=== PATIENT | male | born 2000 | race Caucasian/White ===

== ENCOUNTER 2024-09-30 23:37 | Emergency (ER) | payer SELFPAY ==
[2024-09-30 23:42] VITALS: BP 145/82; PULSE 82; RESP 14; TEMP 36.7; O2SAT 100
[2024-10-01 01:58] VITALS: BP 133/78; PULSE 59; O2SAT 100
[2024-10-01 01:58] LABS: Basophils # 0.1 10^3/uL (0.0-0.1); Basophils % 0.7 %; Eosinophils % 0.2 %; Hematocrit 43.4 % (37-53); Lymphocytes # 1.8 10^3/uL (0.8-4.8); Lymphocytes % 22.5 %; Mean Corpuscular HGB Conc 33.6 g/dL (30-55); Mean Corpuscular Hemoglobin 30.6 pg (27-33); Mean Platelet Volume 9.9 fL (7.4-10.4); Monocytes # 0.7 10^3/uL (0.2-0.9); Neutrophils # 5.44 10^3/uL (1.8-7.7); Neutrophils % 67.4 %; Nucleated Red Blood Cells % 0 %; Platelet Count 224 10^3/cmm (157-399); Red Blood Count 4.77 10^6/uL (3.85-5.65); Red Cell Distribution Width 11.9 % (12.1-15.1); White Blood Count 8.09 10^3/uL (3.29-11.43)
[2024-10-01 02:00] VITALS: BP 133/79; PULSE 54; O2SAT 100
[2024-10-01 02:15] LABS: Alanine Aminotransferase 22 U/L (0-41); Albumin Level 5.1 g/dL (3.5-5.2); Alkaline Phosphatase 68 U/L (40-130); Anion Gap 14.1 (5-19); Aspartate Amino Transferase 14 U/L (0-40); Blood Urea Nitrogen 19 mg/dL (6-20); Calcium 8.8 mg/dL (8.5-10.5); Carbon Dioxide 28 mmol/L (22-29); Chloride 101 mmol/L (98-107); Creatinine Clr Calc Pharmacy 108.8869; Globulin 2.1 g/dL (1.3-4.6); Glomerular Filtration Rate 91.8 mL/min (90-130); Glucose 98 mg/dL (65-115); Osmolality Calculated 290 mOsm/kg (285-295); Potassium 4.1 mmol/L (3.5-5.1); Sodium 139 mmol/L (136-145); Total Bilirubin 1.1 mg/dL (0.15-1.2); Total Protein 7.2 g/dL (6.6-8.7)
--- NOTE | 2024-10-01 02:15 | ED_ITS ---
HPI - Abdominal Pain 2 General: Chief Complaint: Abdominal Pain Stated Complaint: abd pain tight right under ribs around back Time Seen by Provider: 10/01/24 02:10 History of Present Illness: Patient presents to the ER with complaints of quadrant pain and epigastric pain that radiates to his back between his shoulder blades. Patient says worse with eating especially heavy meals like burritos. Patient also says is worse with moving. Patient has tried taking Pepcid once a day for the last several days with no relief. Patient is never had a pain like this before. Patient does get nauseous when this pain comes back. Patient has had diarrhea off and on multiple x also. Related Data Previous Rx's Medication Instructions Recorded erythromycin 5 mg/gram (0.5 %) eye 1 applic ophthalmic (eye) QID 7 03/17/24 ointment (3.5 gram tube) days #3.5 grams Allergies Allergy/AdvReac Type Severity Reaction Status Date / Time No Known Allergies Allergy Verified 09/30/24 23:47 Review of Systems 2 General: Reports: 10 or more systems reviewed and unremarkable except in HPI and below Physical Exam 2 Const: COMMON NORMALS: no acute distress, average body habitus, patient oriented x3, no limitations, healthy appearing, alert and well nourished HENMT: COMMON NORMALS: normocephalic, atraumatic, hearing grossly normal bilaterally, external ears normal and Normal external nose present HEAD & SCALP: normocephalic and atraumatic NOSE: Normal external nose present E XTERNAL EAR: Yes external ears normal Neck/C-Spine: COMMON NORMALS: full ROM, no lymphadenopathy, no meningeal signs, no JVD and Thyroid normal THYROID: Thyroid normal Chest: COMMONS NORMALS: normal inspection of the chest and normal palpation of entire chest wall Resp: COMMON NORMALS: normal respiratory effort, No retractions, No use of accessory muscles and clear to auscultation bilaterally AUSCULTATION: clear to auscultation bilaterally Cardio: COMMON NORMALS: no JVD, regular rate, regular rhythm, S1 normal heart sound present, S2 normal heart sound present, No gallops present (Cardio), No clicks present (Cardio), No murmurs present (Cardio) and No rub (Cardio) R ATE: regular rate RHYTHM: regular rhythm HEART SOUNDS: S1 normal heart sound present and S2 normal heart sound present GI: COMMON NORMALS: Normal to inspection, nondistended, normoactive bowel sounds present, Soft to palpation, non-tender, No hepatosplenomegaly present and no masses PALPATION: Yes Soft to palpation and Yes No hepatosplenomegaly present Neuro: COMMON NORMALS: patient oriented x3 SENSORIUM/ORIENTATION: Yes alert MENINGEAL SIGNS: Yes no meningeal signs Course 2 Vital Signs: Vital signs: Vital Signs Temperature 98.1 F 09/30/24 23:42 Pulse Rate 54 L 10/01/24 02:49 Respiratory Rate 14 09/30/24 23:42 Blood Pressure 105/66 10/01/24 02:49 Pulse Oximetry 98 10/01/24 02:49 Oxygen Delivery Me thod Room Air 10/01/24 02:00 MDM - Abdominal Pain Medical Decision Making Patient CBC CMP lipase urinalysis done all essentially negative. Discussed with the patient. Patient be discharged home. Medical Records I reviewed the patient's medical records. Lab Data I reviewed the patient's lab results. 10/01/24 01:53 10/01/24 01:53 Labs/Radiology: Laboratory Results WBC 8.09 10^3/uL (3.29-11.43) 10/01/24 01:53 RBC 4.77 10^6/uL (3.85-5.65) 10/01/24 01:53 Hgb 14.60 g/dL (11.27-16.99) 10/01/24 01:53 Hct 43.4 % (37-53) 10/01/24 01:53 MCV 91.0 fl (82-101) 10/01/24 01:53 MCH 30.6 pg (27-33) 10/01/24 01:53 MCHC 33.6 g/dL (30-55) 10/01/24 01:53 RDW 11.9 % (12.1-15.1) L 10/01/24 01:53 Plt Count 224 10^3/cmm (157-399) 10/01/24 01:53 MPV 9.9 fL (7.4-10.4) 10/01/24 01:53 Neut % (Auto) 67.4 % 10/01/24 01:53 Lymph % (Auto) 22.5 % 10/01/24 01:53 [place] % (Auto) 9.0 % 10/01/24 01:53 Eos % (Auto) 0.2 % 10/01/24 01:53 Baso % (Auto) 0.7 % 10/01/24 01:53 Neut # (Auto) 5.44 10^3/uL (1.8-7.7) 10/01/24 01:53 Lymph # (Auto) 1.8 10^3/uL (0.8-4.8) 10/01/24 01:53 [place] # (Auto) 0.7 10^3/uL (0.2-0.9) 10/01/24 01:53 Eos # (Auto) 0.0 10^3/uL (0.0-0.8) 10/01/24 01:53 Baso # (Auto) 0.1 10^3/uL (0.0-0.1) 10/01/24 01:53 Nucleated RBC % (auto) 0 % 10/01/24 01:53 Nucleated RBCs # 0.0 /100WBC 10/01/24 01:53 Sodium 139 mmol/L (136-145) 10/01/24 01:53 Potassium 4.1 mmol/L (3.5-5.1) 10/01/24 01:53 Chloride 101 mmol/L (98-107) 10/01/24 01:53 Carbon Dioxide 28 mmol/L (22-29) 10/01/24 01:53 Anion Gap 14.1 (5-19) 10/01/24 01:53 BUN 19 mg/dL (6-20) 10/01/24 01:53 Creatinine 1.0 mg/dL (0.7-1.2) 10/01/24 01:53 GFR Calculation 91.8 mL/min (90-130) 10/01/24 01:53 Glucose 98 mg/dL (65-115) 10/01/24 01:53 Calculated Osmolality 290 mOsm/kg (285-295) 10/01/24 01:53 Calcium 8.8 mg/dL (8.5-10.5) 10/01/24 01:53 Magnesium 2.2 mg/dL (1.7-2.3) 10/01/24 01:53 Total Bilirubin 1.1 mg/dL (0.15-1.2) 10/01/24 01:53 AST 14 U/L (0-40) 10/01/24 01:53 ALT 22 U/L (0-41) 10/01/24 01:53 Alkaline Phosphatase 68 U/L (40-130) 10/01/24 01:53 Total Protein 7.2 g/dL (6.6-8.7) 10/01/24 01:53 Albumin 5.1 g/dL (3.5-5.2) 10/01/24 01:53 Globulin 2.1 g/dL (1.3-4.6) 10/01/24 01:53 Lipase 28 U/L (13-60) 10/01/24 01:53 Urine Color Yellow (Yellow) 10/01/24 02:27 Urine Appearance Clear (CLEAR) 10/01/24 02:27 Urine pH 5.5 (5-7) 10/01/24 02:27 Ur Specific [place] 1.027 (1.005-1.030) 10/01/24 02:27 Urine Protein Negative (Negative) 10/01/24 02:27 Urine Glucose (UA) Negative (Normal) 10/01/24 02:27 Urine Ketones Negative (Negative) 10/01/24 02:27 Urine Blood Negative (Negative) 10/01/24 02:27 Urine Nitrate Negative (Negative) 10/01/24 02:27 Urine Bilirubin Negative (Negative) 10/01/24 02:27 Urine Urobilinogen 1.0 mg/dL (Negative) 10/01/24 02:27 Ur Leukocyte Esterase Negative (Negative) 10/01/24 02:27 Urine RBC 0-2 /hpf (0-2) 10/01/24 02:27 Urine WBC 11-20 /hpf (0-5) H 10/01/24 02:27 Ur Squamous Epith Cells 0-5 /hpf (0-5) 10/01/24 02:27 Amorphous Sediment Not Reportable 10/01/24 02:27 Urine Bacteria None seen /hpf (NONE) 10/01/24 02:27 Hyaline Casts 1.21 /lpf 10/01/24 02:27 All radiology interpretation(s) finalized by discharge Discharge Plan Discharge Patient Disposition: Home Clinical Impression: Abdominal pain Qualifiers: Abdominal location: right upper quadrant Qualified Code(s): R10.11 - Right upper quadrant pain Condition: Stable Prescriptions: No Action erythromycin 5 mg/gram (0.5 %) ointment 1 applic ophthalmic (eye) QID 7 Days Qty: 3.5 0RF Discharge Orders: Discharge ED (Routine); Ordered 10/01/24 Ordered By: Maksim Rodriguez Referrals: Justyna Ruiz MD [Primary Care Provider] - 1 week Patient Instructions: Abdominal Pain (ED) Activity Restrictions/Additional Instructions: Thank you for choosing [facility] for your healthcare needs today. Please realize that you were seen in the emergency department and that we are providing you with an emergency medical screening exam and this may not be a complete and all exclusive of all testing and/or medical workup we may need to determine your element or severity of your illness. It is very important that you follow-up as instructed with your primary care provider or specialist for the additional evaluation and to discuss your medical treatment plan. You may return to the emergency department should you have concerns or if your condition changes or worsens in any way. Coding Level of Care Code ED Miner Placer for Chandler Hayden
[2024-10-01 02:35] LABS: Bilirubin Urine Negative (Negative); Blood Urine Negative (Negative); Glucose Urine UA Negative (Normal); Ketones Urine Negative (Negative); Leukocyte Esterase Urine Negative (Negative); Nitrate Urine Negative (Negative); Protein Urine Negative (Negative); Specific Gravity, Urine 1.027 (1.005-1.030); Urine Appearance Clear (CLEAR); Urine Color Yellow (Yellow); pH Urine 5.5 (5-7)
[2024-10-01 02:39] LABS: Lipase 28 U/L (13-60); Magnesium 2.2 mg/dL (1.7-2.3)
[2024-10-01 02:40] LABS: Add Urine Microscopic? YES; Bacteria Urine None Seen /hpf; Hyaline Casts Urine 1.21 /lpf; RBC Urine 0-2 /hpf (0-2); Squamous Epithelial Cell Urine 0-5 /hpf (0-5)
[2024-10-01 02:49] VITALS: BP 105/66; PULSE 54; O2SAT 98
[2024-10-01 03:02] VITALS: BP 110/66; PULSE 55; O2SAT 98
== END 2024-10-01 03:00 | disposition home or self-care (01) ==
PROVIDERS: Emergency Provider Emergency Medicine; PCP Pediatrics Adolescent Medicine
DX: R10.11 Right upper quadrant pain (principal)
CPT/HCPCS: 36415; 80053; 81001; 83690; 83735; 85025; 99283

== ENCOUNTER 2024-10-02 11:16 | Emergency (ER) | payer OTHER, SELFPAY ==
--- NOTE | 2024-10-02 11:31 | ECG_ITS ---
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
[2024-10-02 11:34] VITALS: BP 145/80; PULSE 51; RESP 18; TEMP 36.6; O2SAT 99
--- NOTE | 2024-10-02 11:38 | XR_ITS ---
WS: [id number] Exam: XR chest 1V portable [id number] Date/Time of Exam: 10/02/2024 11:41 AM Reason For Exam: dyspnea/cough No priors. Lungs are clear and fully inflated. Normal cardiomediastinal silhouette and regional bony elements. N o pleural effusion. XR/XR chest 1V portable [id number] IMPRESSION: 1. Normal chest.
[2024-10-02 12:33] LABS: Basophils # 0.1 10^3/uL (0.0-0.1); Basophils % 1.1 %; Eosinophils % 0.6 %; Hematocrit 44.6 % (37-53); Lymphocytes # 1.5 10^3/uL (0.8-4.8); Mean Corpuscular HGB Conc 33.2 g/dL (30-55); Mean Corpuscular Hemoglobin 30.3 pg (27-33); Mean Corpuscular Volume 91.2 fl (82-101); Mean Platelet Volume 9.8 fL (7.4-10.4); Monocytes # 0.5 10^3/uL (0.2-0.9); Monocytes % 10.3 %; Neutrophils # 2.69 10^3/uL (1.8-7.7); Neutrophils % 56.8 %; Nucleated Red Blood Cells % 0 %; Platelet Count 212 10^3/cmm (157-399); Red Blood Count 4.89 10^6/uL (3.85-5.65); Red Cell Distribution Width 11.9 % (12.1-15.1); White Blood Count 4.74 10^3/uL (3.29-11.43)
[2024-10-02 12:48] LABS: Alanine Aminotransferase 26 U/L (0-41); Alkaline Phosphatase 69 U/L (40-130); Anion Gap 14.3 (5-19); Aspartate Amino Transferase 15 U/L (0-40); Blood Urea Nitrogen 15 mg/dL (6-20); Calcium 9.7 mg/dL (8.5-10.5); Carbon Dioxide 29 mmol/L (22-29); Chloride 101 mmol/L (98-107); Creatinine Clr Calc Pharmacy 134.2821; Globulin 2.3 g/dL (1.3-4.6); Glomerular Filtration Rate 118.8 mL/min (90-130); Glucose 95 mg/dL (65-115); Lipase 25 U/L (13-60); Osmolality Calculated 291 mOsm/kg (285-295); Potassium 4.3 mmol/L (3.5-5.1); Sodium 140 mmol/L (136-145); Total Bilirubin 2.7 mg/dL (0.15-1.2); Total Protein 7.3 g/dL (6.6-8.7)
[2024-10-02 13:10] LABS: Bilirubin Urine Negative (Negative); Blood Urine Negative (Negative); Glucose Urine UA Negative (Normal); Ketones Urine Negative (Negative); Leukocyte Esterase Urine Negative (Negative); Nitrate Urine Negative (Negative); Protein Urine Negative (Negative); Specific Gravity, Urine 1.017 (1.005-1.030); Urine Appearance Cloudy (CLEAR); Urine Color Yellow (Yellow); Urobilinogen Urine 0.2 mg/dL (Negative); pH Urine 7.5 (5-7)
[2024-10-02 13:13] LABS: Add Urine Microscopic? YES; Bacteria Urine None Seen /hpf; RBC Urine 0-2 /hpf (0-2); Squamous Epithelial Cell Urine 0-5 /hpf (0-5); WBC Urine 0-5 /hpf (0-5)
--- NOTE | 2024-10-02 15:04 | ED_ITS ---
Documented by User: Osiel Dubose DO 10/04/24 05:47 HPI - Abdominal Pain 2 General: Chief Complaint: Abdominal Pain Stated Complaint: pressure under right rib cage ([place]) Time Seen by Provider: 10/02/24 15:01 History of Present Illness: 24-year-old male presents emergency room complaints of abdominal pain intermittently for the last 4 days worse when he eats things he has really noticed particular foods that seem to worse. Has not really noticed anything else that makes it better or worse. He has not had any fever sweats chills no nausea or vomiting. No dysuria urgency or frequency. No vomiting. Is complaining of pain in the right upper quadrant at times radiating into his back and right shoulder Associated Symptoms: Reports nausea; Denies chills, dysuria and fever(s) Related Data Previous Rx's Medication Instructions Recorded pantoprazole 40 mg tablet,delayed 40 mg PO DAILY #30 tabs 10/02/24 release (Protonix) Allergies Allergy/AdvReac Type Severity Reaction Status Date / Time No Known Allergies Allergy Verified 09/30/24 23:47 Review of Systems 2 Const: Denies: fever(s) or chills Card: Denies: chest pain Resp: Denies: dyspnea GI: Reports: abdominal pain and nausea : Denies: dysuria, urinary frequency or urinary urgency Musc: Denies: neck pain or back pain Skin/Breast: Denies: rash Physical Exam 2 Const: GENERAL APPEARANCE: cooperative ORIENTATION/CONSCIOUSNESS: Yes awake, Yes oriented to person, Yes oriented to place and Yes oriented to time HENMT: COMMON NORMALS: normocephalic, atraumatic and hearing grossly normal bilaterally HEAD & SCALP: normocephalic and atraumatic Resp: COMMON NORMALS: normal respiratory effort, No retractions, No use of accessory muscles and clear to auscultation bilaterally AUSCULTATION: clear to auscultation bilaterally Cardio: COMMON NORMALS: regular rate, regular rhythm and No murmurs present (Cardio) RATE: regular rate RHYTHM: regular rhythm GI: COMMON NORMALS: Soft to palpation and No hepatosplenomegaly present A USCULTATION: Yes normoactive bowel sounds PALPATION: Yes Soft to palpation, No Tenderness to palpation present (GI), No Guarding due to palpation present (GI) and Yes No hepatosplenomegaly present Extremity: COMMON NORMALS: normal to inspection, capillary refill normal, no clubbing, cyanosis or edema, no calf tenderness and no pedal edema Neuro: SENSORIUM/ORIENTATION: Yes oriented to person, Yes oriented to place and Yes oriented to time Skin: COMMON NORMALS: no rashes or lesions noted GENERAL SKIN EXAM: no rashes or lesions noted Course 2 Vital Signs: Vital signs: Vital Signs Temperature 97.9 F 10/02/24 11:34 Pulse Rate 56 L 10/02/24 16:10 Respiratory Rate 18 10/02/24 11:34 Blood Pressure 105/70 10/02/24 16:10 Pulse Oximetry 98 10/02/24 16:10 Oxygen Delivery Me thod Room Air 10/02/24 15:07 MDM - Abdominal Pain Medical Decision Making Labs and imaging reviewed no sign of acute fracture. Symptoms exacerbated by eating. He does have isolated elevated bilirubin. Ultrasound of the gallbladder does not show any significant abnormality patient will need discharged home on pantoprazole will set up follow-up HIDA scan and follow-up with general surgery Lab Data 10/02/24 12:20 10/02/24 12:20 Labs/Radiology: Radiology Impressions Chest X-Ray 10/02/24 11:38 IMPRESSION: 1. Normal chest. Gallbladder Ultrasound 10/02/24 15:12 IMPRESSION: Normal right upper quadrant ultrasound. Laboratory Results WBC 4.74 10^3/uL (3.29-11.43) 10/02/24 12:20 RBC 4.89 10^6/uL (3.85-5.65) 10/02/24 12:20 Hgb 14.80 g/dL (11.27-16.99) 10/02/24 12:20 Hct 44.6 % (37-53) 10/02/24 12:20 MCV 91.2 fl (82-101) 10/02/24 12:20 MCH 30.3 pg (27-33) 10/02/24 12:20 MCHC 33.2 g/dL (30-55) 10/02/24 12:20 RDW 11.9 % (12.1-15.1) L 10/02/24 12:20 Plt Count 212 10^3/cmm (157-399) 10/02/24 12:20 MPV 9.8 fL (7.4-10.4) 10/02/24 12:20 Neut % (Auto) 56.8 % 10/02/24 12:20 Lymph % (Auto) 31.0 % 10/02/24 12:20 [place] % (Auto) 10.3 % 10/02/24 12:20 Eos % (Auto) 0.6 % 10/02/24 12:20 Baso % (Auto) 1.1 % 10/02/24 12:20 Neut # (Auto) 2.69 10^3/uL (1.8-7.7) 10/02/24 12:20 Lymph # (Auto) 1.5 10^3/uL (0.8-4.8) 10/02/24 12:20 [place] # (Auto) 0.5 10^3/uL (0.2-0.9) 10/02/24 12:20 Eos # (Auto) 0.0 10^3/uL (0.0-0.8) 10/02/24 12:20 Baso # (Auto) 0.1 10^3/uL (0.0-0.1) 10/02/24 12:20 Nucleated RBC % (auto) 0 % 10/02/24 12:20 Nucleated RBCs # 0.0 /100WBC 10/02/24 12:20 Sodium 140 mmol/L (136-145) 10/02/24 12:20 Potassium 4.3 mmol/L (3.5-5.1) 10/02/24 12:20 Chloride 101 mmol/L (98-107) 10/02/24 12:20 Carbon Dioxide 29 mmol/L (22-29) 10/02/24 12:20 Anion Gap 14.3 (5-19) 10/02/24 12:20 BUN 15 mg/dL (6-20) 10/02/24 12:20 Creatinine 0.8 mg/dL (0.7-1.2) 10/02/24 12:20 GFR Calculation 118.8 mL/min (90-130) 10/02/24 12:20 Glucose 95 mg/dL (65-115) 10/02/24 12:20 Calculated Osmolality 291 mOsm/kg (285-295) 10/02/24 12:20 Calcium 9.7 mg/dL (8.5-10.5) 10/02/24 12:20 Total Bilirubin 2.7 mg/dL (0.15-1.2) H 10/02/24 12:20 AST 15 U/L (0-40) 10/02/24 12:20 ALT 26 U/L (0-41) 10/02/24 12:20 Alkaline Phosphatase 69 U/L (40-130) 10/02/24 12:20 Total Protein 7.3 g/dL (6.6-8.7) 10/02/24 12:20 Albumin 5.0 g/dL (3.5-5.2) 10/02/24 12:20 Globulin 2.3 g/dL (1.3-4.6) 10/02/24 12:20 Lipase 25 U/L (13-60) 10/02/24 12:20 Urine Color Yellow (Yellow) 10/02/24 12:55 Urine Appearance Cloudy (CLEAR) A 10/02/24 12:55 Urine pH 7.5 (5-7) 10/02/24 12:55 Ur Specific [place] 1.017 (1.005-1.030) 10/02/24 12:55 Urine Protein Negative (Negative) 10/02/24 12:55 Urine Glucose (UA) Negative (Normal) 10/02/24 12:55 Urine Ketones Negative (Negative) 10/02/24 12:55 Urine Blood Negative (Negative) 10/02/24 12:55 Urine Nitrate Negative (Negative) 10/02/24 12:55 Urine Bilirubin Negative (Negative) 10/02/24 12:55 Urine Urobilinogen 0.2 mg/dL (Negative) 10/02/24 12:55 Ur Leukocyte Esterase Negative (Negative) 10/02/24 12:55 Urine RBC 0-2 /hpf (0-2) 10/02/24 12:55 Urine WBC 0-5 /hpf (0-5) 10/02/24 12:55 Ur Squamous Epith Cells 0-5 /hpf (0-5) 10/02/24 12:55 Amorphous Sediment Not Reportable 10/02/24 12:55 Urine Bacteria None seen /hpf (NONE) 10/02/24 12:55 Hyaline Casts 0.40 /lpf 10/02/24 12:55 Discharge Plan Discharge Patient Disposition: Home Clinical Impression: Abdominal pain Qualifiers: Abdominal location: right upper quadrant Qualified Code(s): R10.11 - Right upper quadrant pain Condition: Stable Prescriptions: New pantoprazole [Protonix] 40 mg tablet,delayed release (DR/EC) 40 mg PO DAILY Qty: 30 0RF Discharge Orders: Discharge ED (Routine); Ordered 10/02/24 Ordered By: Osiel Dubose Referrals: Justyna Ruiz MD [Primary Care Provider] - Discharge Diet: As Directed Discharge Activity: Increase activity as tolerated Patient Instructions: Biliary Colic (ED), Abdominal Pain (ED), Opioid Safety, Pain Management Activity Restrictions/Additional Instructions: [facility] It is very important that you follow up as instructed or that you return to the Emergency Department should you have concerns or if your condition changes or worsens in any way. You are seen today with complaint right upper quadrant abdominal pain. Your gallbladder ultrasound was normal. Case management migratory to have a HIDA scan done. Your bilirubin is also elevated should follow-up with your primary care doctor or with the [place] clinic regarding this. Coding Level of Care Code ED Boiler Fireman for Chg Fwd Documented by User: Maksim Rodriguez DO 10/03/24 00:04 HPI - Abdominal Pain 2 General: Chief Complaint: Abdominal Pain Stated Complaint: pressure under right rib cage ([place]) Time Seen by Provider: 10/02/24 15:01 Related Data Previous Rx's Medication Instructions Recorded pantoprazole 40 mg tablet,delayed 40 mg PO DAILY #30 tabs 10/02/24 release (Protonix) Allergies Allergy/AdvReac Type Severity Reaction Status Date / Time No Known Allergies Allergy Verified 09/30/24 23:47 Course 2 Vital Signs: Vital signs: Vital Signs Temperature 97.9 F 10/02/24 11:34 Pulse Rate 56 L 10/02/24 16:10 Respiratory Rate 18 10/02/24 11:34 Blood Pressure 105/70 10/02/24 16:10 Pulse Oximetry 98 10/02/24 16:10 Oxygen Delivery Me thod Room Air 10/02/24 15:07 MDM - Abdominal Pain Medical Decision Making Care transferred over Dr. Dubose at shift change Medical Records I reviewed the patient's medical records. Lab Data I reviewed the patient's lab results. 10/02/24 12:20 10/02/24 12:20 Labs/Radiology: Radiology Impressions Chest X-Ray 10/02/24 11:38 IMPRESSION: 1. Normal chest. Gallbladder Ultrasound 10/02/24 15:12 IMPRESSION: Normal right upper quadrant ultrasound. Laboratory Results WBC 4.74 10^3/uL (3.29-11.43) 10/02/24 12:20 RBC 4.89 10^6/uL (3.85-5.65) 10/02/24 12:20 Hgb 14.80 g/dL (11.27-16.99) 10/02/24 12:20 Hct 44.6 % (37-53) 10/02/24 12:20 MCV 91.2 fl (82-101) 10/02/24 12:20 MCH 30.3 pg (27-33) 10/02/24 12:20 MCHC 33.2 g/dL (30-55) 10/02/24 12:20 RDW 11.9 % (12.1-15.1) L 10/02/24 12:20 Plt Count 212 10^3/cmm (157-399) 10/02/24 12:20 MPV 9.8 fL (7.4-10.4) 10/02/24 12:20 Neut % (Auto) 56.8 % 10/02/24 12:20 Lymph % (Auto) 31.0 % 10/02/24 12:20 [place] % (Auto) 10.3 % 10/02/24 12:20 Eos % (Auto) 0.6 % 10/02/24 12:20 Baso % (Auto) 1.1 % 10/02/24 12:20 Neut # (Auto) 2.69 10^3/uL (1.8-7.7) 10/02/24 12:20 Lymph # (Auto) 1.5 10^3/uL (0.8-4.8) 10/02/24 12:20 [place] # (Auto) 0.5 10^3/uL (0.2-0.9) 10/02/24 12:20 Eos # (Auto) 0.0 10^3/uL (0.0-0.8) 10/02/24 12:20 Baso # (Auto) 0.1 10^3/uL (0.0-0.1) 10/02/24 12:20 Nucleated RBC % (auto) 0 % 10/02/24 12:20 Nucleated RBCs # 0.0 /100WBC 10/02/24 12:20 Sodium 140 mmol/L (136-145) 10/02/24 12:20 Potassium 4.3 mmol/L (3.5-5.1) 10/02/24 12:20 Chloride 101 mmol/L (98-107) 10/02/24 12:20 Carbon Dioxide 29 mmol/L (22-29) 10/02/24 12:20 Anion Gap 14.3 (5-19) 10/02/24 12:20 BUN 15 mg/dL (6-20) 10/02/24 12:20 Creatinine 0.8 mg/dL (0.7-1.2) 10/02/24 12:20 GFR Calculation 118.8 mL/min (90-130) 10/02/24 12:20 Glucose 95 mg/dL (65-115) 10/02/24 12:20 Calculated Osmolality 291 mOsm/kg (285-295) 10/02/24 12:20 Calcium 9.7 mg/dL (8.5-10.5) 10/02/24 12:20 Total Bilirubin 2.7 mg/dL (0.15-1.2) H 10/02/24 12:20 AST 15 U/L (0-40) 10/02/24 12:20 ALT 26 U/L (0-41) 10/02/24 12:20 Alkaline Phosphatase 69 U/L (40-130) 10/02/24 12:20 Total Protein 7.3 g/dL (6.6-8.7) 10/02/24 12:20 Albumin 5.0 g/dL (3.5-5.2) 10/02/24 12:20 Globulin 2.3 g/dL (1.3-4.6) 10/02/24 12:20 Lipase 25 U/L (13-60) 10/02/24 12:20 Urine Color Yellow (Yellow) 10/02/24 12:55 Urine Appearance Cloudy (CLEAR) A 10/02/24 12:55 Urine pH 7.5 (5-7) 10/02/24 12:55 Ur Specific [place] 1.017 (1.005-1.030) 10/02/24 12:55 Urine Protein Negative (Negative) 10/02/24 12:55 Urine Glucose (UA) Negative (Normal) 10/02/24 12:55 Urine Ketones Negative (Negative) 10/02/24 12:55 Urine Blood Negative (Negative) 10/02/24 12:55 Urine Nitrate Negative (Negative) 10/02/24 12:55 Urine Bilirubin Negative (Negative) 10/02/24 12:55 Urine Urobilinogen 0.2 mg/dL (Negative) 10/02/24 12:55 Ur Leukocyte Esterase Negative (Negative) 10/02/24 12:55 Urine RBC 0-2 /hpf (0-2) 10/02/24 12:55 Urine WBC 0-5 /hpf (0-5) 10/02/24 12:55 Ur Squamous Epith Cells 0-5 /hpf (0-5) 10/02/24 12:55 Amorphous Sediment Not Reportable 10/02/24 12:55 Urine Bacteria None seen /hpf (NONE) 10/02/24 12:55 Hyaline Casts 0.40 /lpf 10/02/24 12:55 All radiology interpretation(s) finalized by discharge Discharge Plan Discharge Patient Disposition: Home Clinical Impression: Abdominal pain Qualifiers: Abdominal location: right upper quadrant Qualified Code(s): R10.11 - Right upper quadrant pain Condition: Stable Prescriptions: New pantoprazole [Protonix] 40 mg tablet,delayed release (DR/EC) 40 mg PO DAILY Qty: 30 0RF Discharge Orders: Discharge ED (Routine); Ordered 10/02/24 Ordered By: Osiel Dubose Referrals: Justyna Ruiz MD [Primary Care Provider] - Discharge Diet: As Directed Discharge Activity: Increase activity as tolerated Patient Instructions: Biliary Colic (ED), Abdominal Pain (ED), Opioid Safety, Pain Management Activity Restrictions/Additional Instructions: Thank you for choosing [facility] for your healthcare needs today. It is very important that you follow up as instructed or that you return to the Emergency Department should you have concerns or if your condition changes or worsens in any way. You are seen today with complaint right upper quadrant abdominal pain. Your gallbladder ultrasound was normal. Case management migratory to have a HIDA scan done. Your bilirubin is also elevated should follow-up with your primary care doctor or with the [place] clinic regarding this. Coding Level of Care Code ED Boiler Fireman for Chandler Hayden
[2024-10-02 15:07] VITALS: BP 121/70; PULSE 54; O2SAT 100
--- NOTE | 2024-10-02 15:12 | US_ITS ---
WS: [id number] RIGHT UPPER QUADRANT ULTRASOUND HISTORY: RUQ abd pain COMPARISON: None available. Liver: 16.2 cm in length. Normal size liver and echogenicity. No bile duct dilatation or mass. Portal Vein: Normal hepatopetal flow with monophasic waveform. Gallbladder: Normally distended gallbladder with no stones or wall thickening. CBD: 0.3 cm Pancreas: Normal size and echogenicity. Right kidney: 10.1 cm in length. Normal size and echogenicity. No hydronephrosis or mass. Aorta and IVC: Unremarkable abdominal aorta and IVC. No ascites. US/US gall bladder [id number] IMPRESSION: Normal right upper quadrant ultrasound.
[2024-10-02 15:37] VITALS: BP 122/75; PULSE 60; O2SAT 99
[2024-10-02 16:10] VITALS: BP 105/70; PULSE 56; O2SAT 98
--- NOTE | 2024-10-04 07:12 | DCPLANNER ---
faxed outpatient hida to scheduling/messaged gen surg for er f/u
== END 2024-10-02 16:11 | disposition home or self-care (01) ==
PROVIDERS: Emergency Provider Family Medicine; PCP Pediatrics Adolescent Medicine
DX: R10.11 Right upper quadrant pain (principal)
CPT/HCPCS: 36415; 71045; 76705; 80053; 81001; 83690; 85025; 93005; 99285

== ENCOUNTER 2024-10-24 08:26 | Outpatient (CLI) | payer OTHER, SELFPAY ==
--- NOTE | 2024-10-24 08:30 | US_ITS ---
WS: [id number] Complete ABDOMINAL ULTRASOUND HISTORY: RUQ PAIN/ATTN:GALLBLADDER COMPARISON: Gallbladder ultrasound 10/02/2024 Liver: 13.7 cm in length. Normal size liver and echogenicity. No bile duct dilatation or mass. Portal Vein: Normal hepatopetal flow with monophasic waveform. Gallbladder: Normally distended gallbladder with no stones or wall thickening. CBD: 0.2 cm Pancreas: Normal size and echogenicity. Right kidney: 10.0 cm x 6.0 x 5.0 cm. Cortex:1.0 cm. Normal size and echogenicity. No hydronephrosis or mass. Left kidney: 10.5 cm x 4.7 cm x 4.2 cm. Cortex: 1.1 cm. Normal size and echogenicity. No hydronephrosis or mass. Spleen: 10.7 cm. Normal size and echogenicity. Aorta and IVC: Unremarkable abdominal aorta and IVC. US/US abdomen complete* [id number] Impression: Normal complete abdomen ultrasound. Normal gallbladder.
== END 2024-10-24 08:27 | disposition home or self-care (01) ==
LOC: RAD 08:26
PROVIDERS: PCP Family Medicine; Visit Provider Nurse Practitioner Family
DX: R10.11 Right upper quadrant pain (principal)
CPT/HCPCS: 76700

== ENCOUNTER 2024-11-07 09:33 | Outpatient (CLI) | payer OTHER, SELFPAY ==
--- NOTE | 2024-11-07 09:55 | NM_ITS ---
WS: [id number] NUCLEAR MEDICINE HIDA SCAN WITH GALLBLADDER EJECTION FRACTION HISTORY: ABDOMINAL PAIN COMPARISON: Ultrasound 10/24/2024 TECHNIQUE: The patient was intravenously injected with 7.6 mCi of TC99m Mebrofenin. Immediate imaging over the right upper quadrant was followed by 5 minute image and additional images for a total of 60 minutes. Normal uptake of radiotracer throughout the liver. Activity identified in the gallbladder at 10 minutes and well distended by 60 minutes. Activity in the proximal small bowel was seen by 30 minutes. Good washout of the radiotracer from the liver by 60 minutes. The patient then drank 8 ounces of Ensure Plus. Ejection fraction at 60 minutes was 65%. Normal GB ej ection fraction is 35-75%. Post fatty meal symptoms: None. NM/NM hepatobiliary w phar* [id number] IMPRESSION: 1. Normal HIDA scan. 2. Normal gallbladder ejection fraction.
== END 2024-11-07 09:34 | disposition home or self-care (01) ==
LOC: RAD 09:34
PROVIDERS: PCP Family Medicine; Visit Provider Nurse Practitioner Family
DX: R10.11 Right upper quadrant pain (principal)
CPT/HCPCS: 78227; A9537

== ENCOUNTER → 2024-11-14 07:52 | Outpatient (BNVA) | payer OTHER, SELFPAY | PROVIDERS: PCP Family Medicine; Visit Provider Student in an Organized Health Care Education/Training Program | DX: R12 Heartburn (principal); R03.0 Elevated blood-pressure reading, without diagnosis of hypertension | CPT/HCPCS: 99204 ==

== ENCOUNTER 2024-12-03 05:53 | Day surgery (SDC) | payer OTHER, SELFPAY ==
[2024-12-03 06:06] VITALS: BMI 20.2
[2024-12-03 06:13] VITALS: BP 131/70; PULSE 65; RESP 18; TEMP 36.3; O2SAT 99
--- NOTE | 2024-12-03 06:30 | P.ANESASSM_ITS ---
Pre-Anesthetic Assessment Height/Weight: Height 1.88 m Weight 71.668 kg Temp Pulse Resp BP Pulse Ox O2 Del Method 97.3 F L 65 18 131/70 99 Room Air 12/03/24 06:13 12/03/24 06:13 12/03/24 06:13 12/03/24 06:13 12/03/24 06:13 12/03/24 06:13 Operation Date: 12/03/24 07:00 Proposed Procedures p EGD 82577, R10.11(Not Applicable) - Jayden Rodney MD Familial anesthetic complications: None Was Beta Joyce taken within 24 hours: N/A Was Clonidine taken within 24 hours: N/A Last intake: Intake Last Liquid Date 12/02/24 Last Liquid Time 23:00 Last Solid Date 12/02/24 Last Solid Time 23:00 Social No alcohol and No tobacco Exam alert, oriented x 3, clear to auscultation bilaterally and regular rate & rhythm Airway Submandibular: within normal limits Cervical ROM: within normal limits Mallampati: Class II Dentition: full History/ROS No significant history except as noted and No significant complaints Pulmonary None reported CV/HEM Arrythmia None reported Hepatic None reported GI Gastroesophageal Reflux Disease (None this morning) RUQ/RLQ abdominal pain Metabolic None reported Musc/skel None reported Neuropsych None reported Anesthetic Plan ASA status: 1 Anesthesia: Anesthesia Evaluation, General and MAC Risk of > 500 ml blood loss (7ml/kg in children): No Medications/Allergies Home Medications Medication Instructions Recorded Confirmed Last Taken Type pantoprazole 40 mg tablet,delayed 40 mg PO DAILY 6 weeks #30 tabs 11/14/24 12/02/24 12/02/24 Rx release (Protonix) sucralfate 100 mg/mL oral 10 ml PO BID 8 weeks #1,120 mL 11/26/24 12/02/24 12/02/24 Rx suspension Allergies Allergy/AdvReac Type Severity Reaction Status Date / Time No Known Allergies Allergy Verified 11/14/24 07:58 [facility] Anesthesia Social History Smoking and tobacco/nicotine status: never used tobacco/nicotine Data Anesthesia Cardiac Studies: No Data to Display
--- NOTE | 2024-12-03 07:06 | W.PM.OPSUD ---
Surgery/Procedure H&P Update DATE OF PROCEDURE: December 03, 2024 DATE H&P PERFORMED: 11/14/24 H&P UPDATE INFORMATION: I have reviewed H&P completed within last 30 days, I have examined patient prior to procedure and No changes to prior documentation PLANNED PROCEDURE: Operation Date: 12/03/24 07:00 Proposed Procedures p EGD [id number], R10.11(Not Applicable) - Jayden Rodney MD
[2024-12-03 07:21] VITALS: BP 111/64; PULSE 70; RESP 14; TEMP 36.4; O2SAT 98
[2024-12-03 07:36] VITALS: BP 107/65; PULSE 76; RESP 16; O2SAT 99
[2024-12-03 07:55] VITALS: BP 115/80; PULSE 60; RESP 18; O2SAT 100
--- NOTE | 2024-12-03 08:02 | ANE.PACU2 ---
Inpatient post-anesthesia follow up: Airway intact: Yes Vital signs: Temperature 97.5 F Pulse Rate 60 Respiratory Rate 18 Blood Pressure 115/80 Pulse Oximetry 100 Oxygen Delivery Me thod Room Air Oxygen Flow Rate Fraction of Inspir ed Oxygen Hydration adequate: Yes Nausea and vomiting: No Pain level: 1 Mental status: Baseline
== END 2024-12-03 08:02 | disposition home or self-care (01) ==
PROVIDERS: PCP Family Medicine; Visit Provider Student in an Organized Health Care Education/Training Program
PROC: 0DJ08ZZ Inspection of Upper Intestinal Tract, Via Natural or Artificial Opening Endoscopic (ICD-10-PCS; principal; 2024-12-03 07:00)
DX: R10.11 Right upper quadrant pain (principal); K29.50 Unspecified chronic gastritis without bleeding; K21.9 Gastro-esophageal reflux disease without esophagitis
CPT/HCPCS: 43239; 88305; 88342; J2704; J3490

== ENCOUNTER → 2024-12-26 09:08 | Outpatient (BNVA) | payer OTHER, SELFPAY | PROVIDERS: PCP Family Medicine; Visit Provider Student in an Organized Health Care Education/Training Program | DX: Z09 Encounter for follow-up examination after completed treatment for conditions other than malignant neoplasm (principal); K43.9 Ventral hernia without obstruction or gangrene | CPT/HCPCS: 99214 ==

== ENCOUNTER 2025-01-14 13:12 | Outpatient (CLI) | payer OTHER, SELFPAY ==
--- NOTE | 2025-01-14 13:30 | CT_ITS ---
WS: [id number] CT ABDOMEN AND PELVIS WITH CONTRAST HISTORY: ventral hernia TECHNIQUE: Imaging performed of the abdomen and pelvis with IV contrast. Single phase imaging of the abdomen. Coronal and sagittal reformats are submitted. All CT scans at [facility] use at least one of these dose optimization techniques: automated exposure control; mA and/or kV adjustment per patient size (includes targeted exams where dose is matched to clinical indication); or iterative reconstruction. IV CONTRAST: Omnipaque 350; 100 mL IV. Oral contrast: No DLP: 275.83 mGy.cm COMPARISON: None available. Lower thorax: Lung bases are clear. Heart is normal size. No hiatal hernia. Liver/biliary system: Normal size with no intrahepatic dilatation. Gallbladder: Normal. No gallstones or wall thickening. No pericholecystic fluid. Pancreas: Normal size pancreas and pancreatic duct. No adjacent inflammation. Spleen: Normal size spleen. No mass or infarct. Adrenal glands: Normal. Right kidney: Normal. Left kidney: Normal size kidney. Cortical cyst 10 mm upper pole. No obstruction. Aorta: Normal. Lymphadenopathy: None. Free fluid: None. GI tract: Unremarkable. Abdominal wall: Unremarkable abdominal wall. No hernia. Pelvis: No free fluid or adenopathy within the pelvis. Bones: L5 bilateral pars defects. L5 anterolisthesis by [address]/CT abdomen pelvis w con* [id number] IMPRESSION: 1. No acute abdominopelvic abnormalities. 2. No recurrent ventral abdominal wall hernia. 3. LEFT renal cyst. 4. No GI tract obstruction.
[2025-01-14] MEDS: iohexol 350 mg/mL 500 mL Btl (per mL) IV (13:37)
== END 2025-01-14 13:13 | disposition home or self-care (01) ==
PROVIDERS: PCP Family Medicine; Visit Provider Student in an Organized Health Care Education/Training Program
DX: K43.9 Ventral hernia without obstruction or gangrene (principal); N28.1 Cyst of kidney, acquired; M43.06 Spondylolysis, lumbar region; R93.7 Abnormal findings on diagnostic imaging of other parts of musculoskeletal system
CPT/HCPCS: 74177

== ENCOUNTER 2025-10-02 21:06 | Emergency (ER) | payer OTHER, SELFPAY ==
--- OUTSIDE RECORDS SUMMARY | 2025-10-02 21:09 | XMS_ITS | Continuity of Care Document ---
Author Name [facility] Organization [facility] Care Team Providers Care Field Manager Name Role Phone [facility] Unavailable Unavailable Problems Combined list of problems from Department of [facility] and [facility] facilities. It does not include entries that were removed or entered in error. Problem Status Onset Date Problem Type Date of Resolution Comments Source Encounter for other administrative examinations Inactive 021 Condition [facility] No Known Problems Active Condition Unkn own Organization Anxiety ([facility] [id number]) Active Condition [place] [facility] Exposure to potentially hazardous substance ([facility] [id number]) Active Condition Oct 16 Entered By: ARLENE ARELLANO Comment: Entered automatically through [employer] Problem List documentation program [facility] Gastroesophageal reflux disease without esophagitis Active Condition Dec 25, 2024 Entered By: VERNELL NEUMANN Comment: EGD 12/2024 positive gastritis [facility] Diagnosis: ICD-10-CM Z09 Encntr for f/u exam aft trtmt for cond oth than malig neoplm Active Diagnosis [facility] Diagnosis: ICD-10-CM M79.632 Pain in left forearm Active Diagnosis [facility] Diagnosis: ICD-10-CM R10.9 Unspecified abdominal pain Active Diagnosis [facility] Diagnosis: ICD-10-CM K21.9 Gastro-esophageal reflux disease without esophagitis Active Diagnosis [facility] Medications Combined list of outpatient medications from Department of [facility] and [facility] facilities.Medications provided include 1) outpatient medications from the last 15 months, and 2) patient-reported medications. Medication Details Route Status Indication(s) Patie nt Instructions Prescription Expires Prescription Number Last Dispense Date Ordering Provider Order Date Order Qty Source Cepacol Sore Throat Cohen 15 mg-3.6 mg mucous membrane lozenge 1 lozenge( s), Oral, every 2 hr, # 18 EA, 0 total refill(s ), Acute, Pharmacy : [facility] Oral (given by mouth) Complet ed Acute upper respiratory infection, unspecified 06/08/20222021 18.0 [facility] [place] cetirizine 10 mg oral tablet 1 tab(s), Oral, Daily, PRN allergy symptoms , # 90 tab(s), 3 total refill(s ), [facility], Pharmacy : [facility] Oral (given by mouth) Ordered Acute upper respiratory infection, unspecified 2 2021 90.0 0091C-N [facility] Karey ibuprofen 800 mg oral tablet 1 tab(s), Oral, every 8 hr, # 30 tab(s), 0 total refill(s ), Acute, 08/18/23 11:00:00 PM CDT, [place] [facility] [place] (given by mouth) Complet ed Pain in unspecified foot 08/19/20232022 30.0 [facility]91[facility] [place] ibuprofen 800 mg oral tablet 1 tab(s), Oral, every 8 hr, # 30 tab(s), 0 total refill(s ), Acute, 06/07/22 11:00:00 PM CDT, Pharmacy : [facility] Oral (given by mouth) Complet ed Acute upper respiratory infection, unspecified 06/08/2022 2 2021 30.0 [facility] [place] Mucinex D Max Strength 120 mg-1200 mg oral tablet, extended release 1 tab(s), Oral, every 12 hr, X 7 days, # 14 tab(s), 0 total refill(s ), Acute, Pharmacy : [facility] Oral (given by mouth) Complet ed Acute upper respiratory infection, unspecified 05/16/20222021 14.0 [facility]91C[facility] [place] naproxen 500 mg oral tablet 1 tab(s), Oral, BID, # 60 tab(s), 0 total refill(s ), [facility], [facility] : [facility] Oral (given by mouth) Discont inued Unspecified fracture of unspecified toe(s), initial encounter for closed fracture 08/18/20222021 60.0 Unknown Organiz ation PANTOPRAZOL E NA 40MG TAB,EC TAKE ONE TABLET BY MOUTH EVERY MORNING BEFORE A MEAL FOR GASTROES OPHAGEAL REFLUX DISEASE TAKE 30 MINUTES BEFORE MEAL(S) ORAL ACTIVE 10/16/2025 [id number] ZAINAB MILAN 2023 90 [facility] [facility] SUCRALFATE 500MG/5ML SUSP,ORAL TAKE 10 ML BY MOUTH TWICE A DAY FOR 8 WEEKS (SWISH IN MOUTH AND SWALLOW - USE AFTER FOOD/DRI NK) ORAL DISCONT INUED 01/21/2025 [id number] JUAN DIEGO GARCIA CARLOS 2024 1260 [place] [facility] Tylenol 325 mg oral tablet 2 tab(s), Oral, every 4 hr, PRN pain or fever, # 50 tab(s), 0 total refill(s ), Acute, 08/18/23 11:00:00 PM CDT, Pharmacy : [facility] Oral (given by mouth) Complet ed Pain in unspecified foot 08/19/20232022 50.0 0091C-N [facility] Tylenol 325 mg oral tablet 3 tab(s), Oral, every 6 hr, PRN pain or fever, # 100 tab(s), 0 total refill(s ), Acute, 06/07/22 11:00:00 PM CDT, Pharmacy : [facility] Oral (given by mouth) [facility] ed Acute upper respiratory infection, unspecified 06/08/2022 2 2021 100.0 00[facility]N [facility] Allergies, Adverse Reactions, Alerts Combined list of allergies from Department of Defense and Veterans Affairs facilities. It does not include entries that were removed or entered in error. Substance Category Reaction Severity Reaction type Status Date Reported Comments Source No Known Allergies Drug allergy (disorder) active 02/07/2023 [facility] Immunizations Combined list of available immunizations from the Department of Defense and Veterans Affairs facilities. 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 Source jaci- Cornelio, influenza vaccine IIV4 [3 yr+] 2021 MOLLYEAPPLEGA TE Shoul ingrid, left (delt oid) [id number] Seqirus complet ed zz- Afluria, influenza vaccine IIV4 [3 yr+] 09/08/22 Recorded 0091C-N [facility] Influenza, injectable, quadrivalent, preservative free 0 2020 [id number] [employer]Kline (SKB) complet ed Influenza , injectabl e, quadrival ent, preservat roxanna free DoD SARS-COV-2 (COVID-19) vaccine, mRNA, spike protein, LNP, preservative free, 30 mcg/0.3mL dose 2 2020 EMILIANO REES [id number] [employer] (PFR) complet ed SARS-COV- 2 (COVID-19 ) vaccine, mRNA, spike protein, LNP, preservat roxanna free, 30 mcg/0.3mL dose DoD SARS-COV-2 (COVID-19) vaccine, mRNA, spike protein, LNP, preservative free, 30 mcg/0.3mL dose 1 2020 MISSY CERVANTES [id number] 208 [employer] (PFR) complet ed SARS-COV- 2 (COVID-19 ) vaccine, mRNA, spike protein, LNP, preservat roxanna free, 30 mcg/0.3mL dose DoD anthrax vaccine 2 2019 [id number] 24 [facility]) complet ed anthrax vaccine DoD yellow fever vaccine 0 2019 [id number] 37 Sanofi Pasteur (PMC) complet ed yellow fever vaccine DoD Seasonal, quadrIvalent, recombinant, injectable influenza vaccine, preservative free 0 2019 [id number] 185 [employer] (SEQ) complet ed Seasonal, quadrIval ent, recombina nt, injectabl e influenza vaccine, preservat roxanna free DoD anthrax vaccine 1 2019 [id number] 24 [facility]) complet ed anthrax vaccine DoD typhoid vaccine, parenteral, other than acetone-kille d, dried 1 2019 [id number] 41 Fluid ([facility]) complet ed typhoid vaccine, parentera l, other than acetone-k illed, dried DoD hepatitis A and hepatitis B vaccine 3 2019 [id number] 104 SmithKline (SKB) complet ed hepatitis A and hepatitis B vaccine DoD influenza, injectable, quadrivalent- pf 2019 [id number] 150 [employer] complet ed influenza , injectabl e, quadrival ent-pf 01/30/20 Given Ambulat ory Pharmac y influenza, injectable, quadrivalent- pf 2019 [id number] 150 [employer] complet ed influenza , injectabl e, quadrival ent-pf 01/30/20 Given Ambulat ory Pharmac y Influenza, injectable, quadrivalent, preservative free 0 2019 [id number] 150 [employer] (SEQ) complet ed Influenza , injectabl e, quadrival ent, preservat roxanna free DoD poliovirus vaccine, inactivated 2019 [id number] 10 Medimmune Inc comple t ed polioviru s vaccine, inactivat ed 11/20/19 Given Ambulat ory Pharmac y hepatitis A-hepatitis B vaccine 2019 [id number] 104 GlaxoSmithKli ne complet ed hepatitis A-hepatit is B vaccine 11/20/19 Given Ambulat ory Pharmac y hepatitis A-hepatitis B vaccine 2019 [id number] 104 GlaxoSmithKli ne complet ed hepatitis A-hepatit is B vaccine 11/20/19 Given Ambulat ory Pharmac y poliovirus vaccine, inactivated 2019 [id number] 10 Medimmune Inc comple t ed polioviru s vaccine, inactivat ed 11/20/19 Given Ambulat ory Pharmac y poliovirus vaccine, inactivated 0 2019 [id number] 10 [employer] Inc. (MED) complet ed polioviru s vaccine, inactivat ed DoD hepatitis A and hepatitis B vaccine 2 2019 [id number] 104 SmithKline (SKB) complet ed hepatitis A and hepatitis B vaccine DoD hepatitis A-hepatitis B vaccine 2018 [id number] 104 GlaxoSmithKli ne complet ed hepatitis A-hepatit is B vaccine 01/23/19 Given Ambulat ory Pharmac y influenza, injectable, quadrivalent- pf 2018 [id number] 150 Se[employer]irus complet ed influenza , injectabl e, quadrival ent-pf 01/23/19 Given Ambulat ory Pharmac y adenovirus vaccine, live 2018 [id number] 2 143 Teva Pharmaceutica ls complet ed adenoviru s vaccine, live 01/23/19 Given Ambulat ory Pharmac y tetanus, diphtheria, acellular pertu is 2018 [id number] 115 GlaxoSmithKli ne complet ed tetanus, diphtheri a, acellular pertussis 01/23/19 Given Ambulat ory Pharmac y meningococcal A,C,Y,W-135 (MCV4P) 2018 [id number] 114 sanofi pasteur complet ed meningoco ccal A,C,Y,W-1 35 (MCV4P) 01/23/19 Given Ambulat ory Pharmac y pneumococcal polysaccharid e, 23 valent 2018 [id number] 33 Merck & Company Inc complet ed pneumococ russ polysacch aride, 23 valent 01/23/19 Given Ambulat ory Pharmac y tuberculin purified protein derivative 2018 zzLef t Arm [id number] 96 sanofi pasteur complet ed tuberculi n purified protein derivativ e 01/23/19 Given Ambulat ory Pharmac y influenza, injectable, quadrivalent- pf 2018 zzRig ht Arm [id number] 150 Se[employer]irus complet ed influenza , injectabl e, quadrival ent-pf 01/23/19 Given Ambulat ory Pharmac y adenovirus vaccine, live 2018 [id number] 2 143 Teva Pharmaceutica ls complet ed adenoviru s vaccine, live 01/23/19 Given Ambulat ory Pharmac y tetanus, diphtheria, acellular pertu is 2018 zzRig ht Arm [id number] 115 GlaxoSmithKli ne complet ed tetanus, diphtheri a, acellular pertussis 01/23/19 Given Ambulat ory Pharmac y pneumococcal polysaccharid e, 23 valent 2018 zzRig ht Arm [id number] 33 Merck & Company Inc complet ed pneumococ russ polysacch aride, 23 valent 01/23/19 Given Ambulat ory Pharmac y hepatitis A-hepatitis B vaccine 2018 zzLef t Arm [id number] 104 GlaxoSmithKli ne complet ed hepatitis A-hepatit is B vaccine 01/23/19 Given Ambulat ory Pharmac y meningococcal A,C,Y,W-135 (MCV4P) 2018 zzLef t Arm [id number] 114 sanofi pasteur complet ed meningoco ccal A,C,Y,W-1 35 (MCV4P) 01/23/19 Given Ambulat ory Pharmac y TDAP 2018 115 complet ed HISTORICA L INFORMATI ON - FROM PATIENT'S WRITTEN RECORD, Lot#: [id number] [facility] pneumococcal polysaccharid e vaccine, 23 valent 1 2018 BARBARA EDGAR [id number] 33 Merck (MSD) complet ed pneumococ russ polysacch aride vaccine, 23 valent DoD tuberculin skin test; purified protein derivative solution, intradermal 1 2018 BARBARA EDGAR [id number] 96 Sanofi Pasteur (PMC) complet ed tuberculi n skin test; purified protein derivativ e solution, intraderm al DoD hepatitis A and hepatitis B vaccine 1 2018 BARBARA EDGAR [id number] 104 SmithKline (SKB) complet ed hepatitis A and hepatitis B vaccine DoD meningococcal polysaccharid e (groups A, C, Y and W-135) diphtheria toxoid conjugate vaccine (MCV4P) 1 2018 BARBARA EDGAR [id number] 114 Sanofi Pasteur (PMC) complet ed meningoco ccal polysacch aride (groups A, C, Y and W-135) diphtheri a toxoid conjugate vaccine (MCV4P) DoD tetanus toxoid, reduced diphtheria toxoid, and acellular pertu is vaccine, adsorbed 1 2018 BARBARA EDGAR [id number] 115 SmithKline (SKB) complet ed tetanus toxoid, reduced diphtheri a toxoid, and acellular pertussis vaccine, adsorbed DoD Adenovirus, type 4 and type 7, live, oral 1 2018 BARBARA EDGAR [id number] 2 143 [facility] (BRR) complet ed Adenoviru s, type 4 and type 7, live, oral DoD Influenza, injectable, quadrivalent, preservative free 1 2018 BARBARA EDGAR [id number] 150 Seqirus (SEQ) complet ed Influenza , injectabl e, quadrival ent, preservat roxanna free DoD MENINGOCOCCAL MCV4P 1 2012 114 complet ed HISTORICA L INFORMATI ON - FROM OTHER REGISTRY, [facility] TDAP 6 2012 115 complet ed HISTORICA L INFORMATI ON - FROM OTHER REGISTRY, [facility] DTAP 5 2003 20 complet ed HISTORICA L INFORMATI ON - FROM OTHER REGISTRY, [facility] IPV 4 2003 10 complet ed HISTORICA L INFORMATI ON - FROM OTHER REGISTRY, [facility] MMR 2 2003 03 complet ed HISTORICA L INFORMATI ON - FROM OTHER REGISTRY, [facility] DTAP 4 2000 20 complet ed HISTORICA L INFORMATI ON - FROM OTHER REGISTRY, [facility] HIB (PRP-T) 4 2000 48 complet ed HISTORICA L INFORMATI ON - FROM OTHER REGISTRY, [facility] IPV 3 2000 10 complet ed HISTORICA L INFORMATI ON - FROM OTHER REGISTRY, [facility] MMR 1 2000 03 complet ed HISTORICA L INFORMATI ON - FROM OTHER REGISTRY, [facility] VARICELLA 1 2000 21 complet ed HISTORICA L INFORMATI ON - FROM OTHER REGISTRY, [facility] DTAP 3 1999 20 complet ed HISTORICA L INFORMATI ON - FROM OTHER REGISTRY, [facility] HEP B, ADOLESCENT/HI GH RISK 3 1999 42 complet ed HISTORICA L INFORMATI ON - FROM OTHER REGISTRY, [facility] HIB (PRP-T) 3 1999 48 complet ed HISTORICA L INFORMATI ON - FROM OTHER REGISTRY, [facility] DTAP 2 1999 20 complet ed HISTORICA L INFORMATI ON - FROM OTHER REGISTRY, [facility] HIB (PRP-T) 2 1999 48 complet ed HISTORICA L INFORMATI ON - FROM OTHER REGISTRY, [facility] IPV 2 1999 10 complet ed HISTORICA L INFORMATI ON - FROM OTHER REGISTRY, [facility] DTAP 1 1999 20 complet ed HISTORICA L INFORMATI ON - FROM OTHER REGISTRY, [facility] HEP B, UNSPECIFIED FORMULATION 2 1999 45 complet ed HISTORICA L INFORMATI ON - FROM OTHER REGISTRY, [facility] HIB (PRP-T) 1 1999 48 complet ed HISTORICA L INFORMATI ON - FROM OTHER REGISTRY, [facility] IPV 1 1999 10 complet ed HISTORICA L INFORMATI ON - FROM OTHER REGISTRY, [facility] HEP B, UNSPECIFIED FORMULATION 1 1999 45 complet ed HISTORICA L INFORMATI ON - FROM OTHER REGISTRY, [facility] Results Combined list of recent chemistry, hematology and other laboratory results from Department of Defense and Veterans Affairs, ranging from 15 months to all on record, depending upon the facility. Order Name Results Value Reference Range Date Interpretation Specimen Comments Source CBC LEUKOCYTES [#/VOLUME] IN BLOOD BY AUTOMATED COUNT 4.3 10*3/uL 3.6 - 11.2 10/08 Specimen Type: BLOOD No comment entered. Ordering Provider: GARY NEUMANN Report Released Date/Time: Oct 02, 2024 09:31 PM Reporting Lab: [place] [facility] [address] [place] [address] Performing Lab: [place] [facility] [address] [place] [address] [facility] CBC ERYTHROCYT ES [#/VOLUME] IN BLOOD BY AUTOMATED COUNT 4.83 10*6/uL 4.10 - 5.70 10/08 Specimen Type: BLOOD No comment entered. Ordering Provider: GARY NEUMANN Report Released Date/Time: Oct 02, 2024 09:31 PM Reporting Lab: [place] [facility] [address] [place] [address] Performing Lab: [place] [facility] [address] [place] [address] [facility] CBC HEMOGLOBIN [MASS/VOLU ME] IN BLOOD 15.0 g/dL 13.1 - 16.8 10/08 Specimen Type: BLOOD No comment entered. Ordering Provider: GARY NEUMANN MMY Report Released Date/Time: Oct 02, 2024 09:31 PM Reporting Lab: [place] [facility] [address] [place] [address] Performing Lab: [place] [facility] [address] [place] [address] [place] [address] [facility] CBC HEMATOCRIT [VOLUME FRACTION] OF BLOOD 43.3 38.2 - 48.4 10/08 Specimen Type: BLOOD No comment entered. Ordering Provider: GARY NEUMANN MMY Report Released Date/Time: Oct 02, 2024 09:31 PM Reporting Lab: [place] [facility] [address] [place] [id number] Performing Lab: [place] [facility] [address] [place] [address] [facility] CBC MCV [ENTITIC VOLUME] BY AUTOMATED COUNT 89.6 fL 80.0 - 100.0 10/08 Specimen Type: BLOOD No comment entered. Ordering Provider: GARY NEUMANN MMY Report Released Date/Time: Oct 02, 2024 09:31 PM Reporting Lab: [place] [facility] [address] [place] [address] Performing Lab: [place] [facility] [address] [place] [address] [facility] CBC MCH [ENTITIC MASS] BY AUTOMATED COUNT 31.1 pg 27.0 - 34.0 10/08 Specimen Type: BLOOD No comment entered. Ordering Provider: GARY NEUMANN MMY Report Released Date/Time: Oct 02, 2024 09:31 PM Reporting Lab: [place] [facility] [address] [place] [facility] Performing Lab: [place] [facility] [address] [place] [facility] [facility] CBC MCHC [MASS/VOLU ME] BY AUTOMATED COUNT 34.6 g/dL 33.0 - 36.0 10/08 Specimen Type: BLOOD No comment entered. Ordering Provider: GARY NEUMANN MMY Report Released Date/Time: Oct 02, 2024 09:31 PM Reporting Lab: [place] [facility] [address] [place] [address] Performing Lab: [place] [facility] [address] [place] [address] [facility] CBC PLATELETS [#/VOLUME] IN BLOOD BY AUTOMATED COUNT 210 10*3/uL 150 - 400 10/08 Specimen Type: BLOOD No comment entered. Ordering Provider: GARY NEUMANN MMY Report Released Date/Time: Oct 02, 2024 09:31 PM Reporting Lab: [place] [facility] [address] [place] [address] Performing Lab: [place] [facility] [address] [place] [address] [facility] CBC PLATELET MEAN VOLUME [ENTITIC VOLUME] IN BLOOD BY AUTOMATED COUNT 10.5 fL 7.5 - 11.2 10/08 Specimen Type: BLOOD No comment entered. Ordering Provider: GARY NEUMANN MMY Report Released Date/Time: Oct 02, 2024 09:31 PM Reporting Lab: [place] [facility] [address] [place] [address] Performing Lab: [place] [facility] [address] [place] [address] [facility] CBC ERYTHROCYT E DISTRIBUTI ON WIDTH [RATIO] BY AUTOMATED COUNT 11.8 11.8 - 15.1 10/08 Specimen Type: BLOOD No comment entered. Ordering Provider: GARY NEUMANN MMY Report Released Date/Time: Oct 02, 2024 09:31 PM Reporting Lab: [place] [facility] [address] [place] [address] Performing Lab: [place] [facility] [address] [place] [address] [facility] CBC LYMPHOCYTE S/100 LEUKOCYTES IN BLOOD BY AUTOMATED COUNT 36.5 10/08 Specimen Type: BLOOD No comment entered. Ordering Provider: GARY NEUMANN MMY Report Released Date/Time: Oct 02, 2024 09:31 PM Reporting Lab: [place] [facility] [address] [place] [address] Performing Lab: [place] [facility] [address] [place] [address] [facility] CBC MONOCYTES/ 100 LEUKOCYTES IN BLOOD BY AUTOMATED COUNT 10.5 10/08 Specimen Type: BLOOD No comment entered. Ordering Provider: GARY NEUMANN MMY Report Released Date/Time: Oct 02, 2024 09:31 PM Reporting Lab: [place] [facility] [address] [place] [address] Performing Lab: [place] [facility] [address] [place] [address] [facility] CBC NEUTROPHIL S/100 LEUKOCYTES IN BLOOD BY AUTOMATED COUNT 50.4 10/08 Specimen Type: BLOOD No comment entered. Ordering Provider: GARY NEUMANN MMY Report Released Date/Time: Oct 02, 2024 09:31 PM Reporting Lab: [place] [facility] [address] [place] [address] Performing Lab: [place] [facility] [address] [place] [address] [facility] CBC EOSINOPHIL S/100 LEUKOCYTES IN BLOOD BY AUTOMATED COUNT 1.2 10/08 Specimen Type: BLOOD No comment entered. Ordering Provider: GARY NEUMANN MMY Report Released Date/Time: Oct 02, 2024 09:31 PM Reporting Lab: [place] [facility] [address] [place] [address] Performing Lab: [place] [facility] [address] [place] [address] [facility] CBC BASOPHILS/ 100 LEUKOCYTES IN BLOOD BY AUTOMATED COUNT 1.2 10/08 Specimen Type: BLOOD No comment entered. Ordering Provider: GARY NEUMANN MMY Report Released Date/Time: Oct 02, 2024 09:31 PM Reporting Lab: [place] [facility] [address] [place] [address] Performing Lab: [place] [facility] [address] [place] [address] [facility] CBC LYMPHOCYTE S [#/VOLUME] IN BLOOD BY AUTOMATED COUNT 1.57 10*3/uL 0.77 - 4.50 10/08 Specimen Type: BLOOD No comment entered. Ordering Provider: GARY NEUMANN MMY Report Released Date/Time: Oct 02, 2024 09:31 PM Reporting Lab: [place] [facility] [address] [place] [address] [place] [address] Performing Lab: [place] [facility] [address] [place] [address] [facility] CBC MONOCYTES [#/VOLUME] IN BLOOD BY AUTOMATED COUNT 0.45 10*3/uL 0.19 - 0.8 10/08 Specimen Type: BLOOD No comment entered. Ordering Provider: GARY NEUMANN MMY Report Released Date/Time: Oct 02, 2024 09:31 PM Reporting Lab: [place] [facility] [address] [place] [address] Performing Lab: [place] [facility] [address] [place] [address] [facility] CBC NEUTROPHIL S [#/VOLUME] IN BLOOD BY AUTOMATED COUNT 2.17 10*3/uL 2.10 - 8.00 10/08 Specimen Type: BLOOD No comment entered. Ordering Provider: GARY NEUMANN MMY Report Released Date/Time: Oct 02, 2024 09:31 PM Reporting Lab: [place] [facility] [address] [place] [address] Performing Lab: [place] [facility] [address] [place] [address] [facility] CBC EOSINOPHIL S [#/VOLUME] IN BLOOD BY AUTOMATED COUNT 0.05 10*3/uL 0.00 - 0.60 10/08 Specimen Type: BLOOD No comment entered. Ordering Provider: GARY NEUMANN MMY Report Released Date/Time: Oct 02, 2024 09:31 PM Reporting Lab: [place] [facility] [address] [place] [address] Performing Lab: [place] [facility] [address] [place] [address] [place] [address] [facility] CBC BASOPHILS [#/VOLUME] IN BLOOD BY AUTOMATED COUNT 0.05 10*3/uL 0.00 - 0.20 10/08 Specimen Type: BLOOD No comment entered. Ordering Provider: GARY NEUMANN MMY Report Released Date/Time: Oct 02, 2024 09:31 PM Reporting Lab: [place] [facility] [address] [place] [address] Performing Lab: [place] [facility] [address] [place] [address] [facility] CBC IMMATURE GRANULOCYT ES/100 LEUKOCYTES IN BLOOD BY AUTOMATED COUNT 0.2 10/08 Specimen Type: BLOOD No comment entered. Ordering Provider: GARY NEUMANN MMY Report Released Date/Time: Oct 02, 2024 09:31 PM Reporting Lab: [place] [facility] [address] [place] [address] Performing Lab: [place] [facility] [address] [place] [address] [facility] CBC IMMATURE GRANULOCYT ES [#/VOLUME] IN BLOOD BY AUTOMATED COUNT 0.01 10*3/uL 0.00 - 0.05 10/08 Specimen Type: BLOOD No comment entered. Ordering Provider: GARY NEUMANN MMY Report Released Date/Time: Oct 02, 2024 09:31 PM Reporting Lab: [place] [facility] [address] [place] [address] Performing Lab: [place] [facility] [address] [place] [address] [facility] HGA1C HEMOGLOBIN A1C/HEMOGL OBIN.TOTAL IN BLOOD 5.0 4.0 - 6.0 10/08 Specimen Type: BLOOD No comment entered. Ordering Provider: GARY NEUMANN MMY Report Released Date/Time: Oct 02, 2024 09:31 PM Reporting Lab: [place] [facility] [address] [place] [address] Performing Lab: [place] [facility] [address] [place] [address] [facility] CHOLESTE ROL PANEL (PB) CHOLESTERO L [MASS/VOLU ME] IN SERUM OR PLASMA 159 mg/dL 0 - 200 10/08 Specimen Type: PLASMA No comment entered. Ordering Provider: GARY NEUMANN MMY Report Released Date/Time: Oct 02, 2024 09:31 PM Reporting Lab: [place] [facility] [address] [place] [address] Performing Lab: [place] [facility] [address] [place] [address] [facility] CHOLESTE ROL PANEL (PB) TRIGLYCERI DE [MASS/VOLU ME] IN SERUM OR PLASMA 52 mg/dL 0 - 150 10/08 Specimen Type: PLASMA No comment entered. Ordering Provider: GARY NEUMANN MMY Report Released Date/Time: Oct 02, 2024 09:31 PM Reporting Lab: [place] [facility] [address] [place] [address] Performing Lab: [place] [facility] [address] [place] [address] [facility] CHOLESTE ROL PANEL (PB) CHOLESTERO L IN LDL [MASS/VOLU ME] IN SERUM OR PLASMA BY CALCULATIO N 102.6 mg/dL 10/08 Specimen Type: PLASMA No comment entered. Ordering Provider: GARY NEUMANN MMY Report Released Date/Time: Oct 02, 2024 09:31 PM Reporting Lab: [place] [facility] [address] [place] [facility] Performing Lab: [place] [facility] [address] [place] [address] [facility] CHOLESTE ROL PANEL (PB) CHOLESTERO L IN HDL [MASS/VOLU ME] IN SERUM OR PLASMA 46.0 mg/dL 40 10/08 H Specimen Type: PLASMA No comment entered. Ordering Provider: GARY NEUMANN MMAmandeep Report Released Date/Time: Oct 02, 2024 09:31 PM Reporting Lab: [place] [facility] [address] [place] [address] Performing Lab: [place] [facility] [address] [place] [address] [facility] CHOLESTE ROL PANEL (PB) CHOLESTERO L IN HDL/CHOLES TEROL.TOTA L [MASS RATIO] IN SERUM OR PLASMA 28.9 25 10/08 Specimen Type: PLASMA No comment entered. Ordering Provider: GARY NEUMANN MMY Report Released Date/Time: Oct 02, 2024 09:31 PM Reporting Lab: [place] [facility] [address] [place] [address] Performing Lab: [place] [facility] [address] [place] [address] [facility] COMPREHE NSIVE METABOLI C PANEL CREATININE [MASS/VOLU ME] IN SERUM OR PLASMA 0.96 mg/dL 0.7 - 1.3 10/08 Specimen Type: PLASMA No comment entered. Ordering Provider: GARY NEUMANN MMY Report Released Date/Time: Oct 02, 2024 09:31 PM Reporting Lab: [place] [facility] [address] [place] [address] Performing Lab: [place] [facility] [address] [place] [address] [facility] COMPREHE NSIVE METABOLI C PANEL UREA NITROGEN [MASS/VOLU ME] IN SERUM OR PLASMA 16 mg/dL 9 - 25 10/08 Specimen Type: PLASMA No comment entered. Ordering Provider: GARY NEUMANN MMY Report Released Date/Time: Oct 02, 2024 09:31 PM Reporting Lab: [place] [facility] [address] [place] [address] Performing Lab: [place] [facility] [address] [place] [address] [facility] COMPREHE NSIVE METABOLI C PANEL GLUCOSE [MASS/VOLU ME] IN SERUM OR PLASMA 96 mg/dL 72 - 99 10/08 Specimen Type: PLASMA No comment entered. Ordering Provider: GARY NEUMANN MMY Report Released Date/Time: Oct 02, 2024 09:31 PM Reporting Lab: [place] [facility] [address] [place] [address] Performing Lab: [place] [facility] [address] [place] [address] [facility] COMPREHE NSIVE METABOLI C PANEL SODIUM [MOLES/VOL UME] IN SERUM OR PLASMA 139 meq/L 136 - 145 10/08 Specimen Type: PLASMA No comment entered. Ordering Provider: GARY NEUMANN MMY Report Released Date/Time: Oct 02, 2024 09:31 PM Reporting Lab: [place] [facility] [address] [place] [address] Performing Lab: [place] [facility] [address] [place] [address] [facility] COMPREHE NSIVE METABOLI C PANEL POTASSIUM [MOLES/VOL UME] IN SERUM OR PLASMA 4.0 meq/L 3.5 - 5 10/08 Specimen Type: PLASMA No comment entered. Ordering Provider: GARY NEUMANN MMY Report Released Date/Time: Oct 02, 2024 09:31 PM Reporting Lab: [place] [facility] [address] [place] [address] Performing Lab: [place] [facility] [address] [place] [address] [facility] COMPREHE NSIVE METABOLI C PANEL CHLORIDE [MOLES/VOL UME] IN SERUM OR PLASMA 104 meq/L 98 - 107 10/08 Specimen Type: PLASMA No comment entered. Ordering Provider: GARY NEUMANN MMY Report Released Date/Time: Oct 02, 2024 09:31 PM Reporting Lab: [place] [facility] [address] [place] [address] Performing Lab: [place] [facility] [address] [place] [address] [facility] COMPREHE NSIVE METABOLI C PANEL CARBON DIOXIDE, TOTAL [MOLES/VOL UME] IN SERUM OR PLASMA 25 meq/L 22 - 31 10/08 Specimen Type: PLASMA No comment entered. Ordering Provider: GARY NEUMANN MMY Report Released Date/Time: Oct 02, 2024 09:31 PM Reporting Lab: [place] [facility] [address] [place] [address] Performing Lab: [place] [facility] [address] [place] [address] [facility] COMPREHE NSIVE METABOLI C PANEL CALCIUM [MASS/VOLU ME] IN SERUM OR PLASMA 9.6 mg/dL 8.4 - 10.4 10/08 Specimen Type: PLASMA No comment entered. Ordering Provider: GARY NEUMANN MMY Report Released Date/Time: Oct 02, 2024 09:31 PM Reporting Lab: [place] [facility] [address] [place] [address] Performing Lab: [place] [facility] [address] [place] [address] [facility] COMPREHE NSIVE METABOLI C PANEL PROTEIN [MASS/VOLU ME] IN SERUM OR PLASMA 7.4 g/dL 6 - 8.6 10/08 Specimen Type: PLASMA No comment entered. Ordering Provider: GARY NEUMANN Report Released Date/Time: Oct 02, 2024 09:31 PM Reporting Lab: [place] [facility] [address] [place] [address] Performing Lab: [place] [facility] [address] [place] [address] [facility] COMPREHE NSIVE METABOLI C PANEL ALBUMIN [MASS/VOLU ME] IN SERUM OR PLASMA 4.9 g/dL 3.4 - 5 10/08 Specimen Type: PLASMA No comment entered. Ordering Provider: GARY NEUMANN Report Released Date/Time: Oct 02, 2024 09:31 PM Reporting Lab: [place] [facility] [address] [place] [address] Performing Lab: [place] [facility] [address] [place] [address] [facility] COMPREHE NSIVE METABOLI C PANEL BILIRUBIN. TOTAL [MASS/VOLU ME] IN SERUM OR PLASMA 1.7 mg/dL 0.2 - 1.2 10/08 H Specimen Type: PLASMA No comment entered. Ordering Provider: GARY NEUMANN Report Released Date/Time: Oct 02, 2024 09:31 PM Reporting Lab: [place] [facility] [address] [place] [address] Performing Lab: [place] [facility] [address] [place] [address] [facility] COMPREHE NSIVE METABOLI C PANEL ALKALINE PHOSPHATAS E [ENZYMATIC ACTIVITY/V OLUME] IN SERUM OR PLASMA 59 U/L 40 - 150 10/08 Specimen Type: PLASMA No comment entered. Ordering Provider: GARY NEUMANN MMY Report Released Date/Time: Oct 02, 2024 09:31 PM Reporting Lab: [place] [facility] [address] [place] [address] Performing Lab: [place] [facility] [address] [place] [address] [facility] COMPREHE NSIVE METABOLI C PANEL ASPARTATE AMINOTRANS FERASE [ENZYMATIC ACTIVITY/V OLUME] IN SERUM OR PLASMA 12 U/L 5 - 34 10/08 Specimen Type: PLASMA No comment entered. Ordering Provider: GARY NEUMANN MMY Report Released Date/Time: Oct 02, 2024 09:31 PM Reporting Lab: [place] [facility] [address] [place] [address] Performing Lab: [place] [facility] [address] [place] [address] [facility] COMPREHE NSIVE METABOLI C PANEL ALANINE AMINOTRANS FERASE [ENZYMATIC ACTIVITY/V OLUME] IN SERUM OR PLASMA 16 U/L 8 - 40 10/08 Specimen Type: PLASMA No comment entered. Ordering Provider: GARY NEUMANN MMY Report Released Date/Time: Oct 02, 2024 09:31 PM Reporting Lab: [place] [facility] [address] [place] [address] Performing Lab: [place] [facility] [address] [place] [address] [facility] COMPREHE NSIVE METABOLI C PANEL GLOMERULAR FILTRATION RATE/1.73 SQ M.PREDICTE D [VOLUME RATE/AREA] IN SERUM, PLASMA OR BLOOD BY CREATININE -BASED FORMULA (CKD-EPI 2020) 113 10/08 Specimen Type: PLASMA No comment entered. Ordering Provider: GARY NEUMANN MMY Report Released Date/Time: Oct 02, 2024 09:31 PM Reporting Lab: [place] [facility] [address] [place] [address] Performing Lab: [place] [facility] [address] [place] [address] [facility] TSH (MA-PB) THYROTROPI N [UNITS/VOL UME] IN SERUM OR PLASMA 1.810 u[IU]/mL 0.47 - 5 10/08 Specimen Type: SERUM No comment entered. Ordering Provider: GARY NEUMANN MMY Report Released Date/Time: Oct 02, 2024 09:31 PM Reporting Lab: [place] [facility] [address] [place] [address] Performing Lab: [place] [facility] [address] [place] [address] [facility] VITAMIN D, 25-HYDRO XY 25-HYDROXY VITAMIN D3 [MASS/VOLU ME] IN SERUM OR PLASMA 35.8 ng/mL 30 - 96 10/08 Specimen Type: SERUM No comment entered. Ordering Provider: GARY NEUMANN MMY Report Released Date/Time: Oct 02, 2024 09:31 PM Reporting Lab: [place] [facility] [address] [place] [address] Performing Lab: [place] [facility] [address] [place] [address] [facility] Infectio us Disease Source of Test.LC Gen Force Test ( 2 1:50 PM) 10/04 N Unknown Organizat ion Infectio us Disease HIV-1/2 AG/AB 4G CDD LC NEGATIVE 10/04 Result Comment: Performed At: 1 [facility] [address] [place] [address] [address] [place] [address] ELEANOR EAMON PHD Ph:[phone] Unknown Organizat ion Molecula r Infectio us Disease Reason for Test? Screenin g ( 2 7:10 AM) 09/07 N Unknown Organizat ion Molecula r Infectio us Disease SARS-CoV-2 PCR Negative 2 ( 2 7:10 AM) 09/07 N Interpretiv e Data: POSITIVE: SARS-CoV-2 detected NEGATIVE: SARS-CoV-2 not detected Negative results do not preclude SARS-CoV-2 infection and should not be used as the sole basis for patient management decisions. Negative results must be combined with clinical observation s, patient history, and epidemiolog ical information . The Aptima SARS-CoV-2 assay performed on the [employer] system is a nucleic acid amplificati on in vitro diagnostic test intended for the qualitative detection of RNA from SARS-CoV-2 isolated and purified from upper respiratory specimens obtained from individuals meeting COVID-19 clinical and/or epidemiolog ical criteria, as well as upper respiratory specimens collected from an individual, including individuals withoutsymp toms or other reason to suspect COVID-19 infection. The Aptima SARS-CoV-2 assay is for use only under Emergency Use Authorizati on (EUA) in the [place] laboratorie s certified under the Clinical Laboratory Improvement Amendments of 1988 (CLIA), 42 U.S.C. 263a, that meets requirement s to perform high complexity tests.Resul ts are for the identificat ion of SARS-CoV-2 RNA. The SARS-CoV-2 RNA is generally detectable in upper respiratory specimens during the acute phase of infection. Positive results are indicative of the presence of SARS-CoV-2 RNA, clinical correlation with patient history and other diagnostic information is necessary to determine patient infection status. Unknown Organizat ion Vital Signs Combined list of inpatient and outpatient Vital Signs from Department of Defense and Veterans Affairs, ranging from 12 months to all on record, depending upon the facility. Vital Sign Value Date Comments Source Temperature Oral 37 Geeta 05/09/2022 12:09:00 [facility] [place] Peripheral Pulse Rate 91 bpm 05/09/2022 12:09:00 [facility] [place] Mean Arterial Pressure, Cuff (Calc) 110 mm[Hg] 05/09/2022 12:09:00 [facility] [place] BP Site Left arm 05/09/2022 12:09:00 [facility] [place] Systolic Blood Pressure 138 mm[Hg] 05/09/20 22 12:09:00 [facility] [place] Diastolic Blood Pressure 96 mm[Hg] 022 12:09:00 [facility] [place] Blood Pressure Manual Automatic 05/09/2022 12:09:00 [facility] [place] Temperature Oral 36.7 Geeta 08/18/2022 11:58:00 [facility] [place] Blood Pressure Manual Automatic 08/18/2022 11:58:00 [facility] [place] BP Site Right arm 08/18/2022 11:58:00 [facility] [place] Mean Arterial Pressure, Cuff (Calc) 79 mm[Hg] 08/18/2022 11:58:00 [facility] [place] Respiratory Rate 16 br/min 08/18/2022 11:58:00 [facility] [place] Peripheral Pulse Rate 54 bpm 08/18/2022 11:58:00 [facility] [place] Systolic Blood Pressure 117 mm[Hg] 08/18/20 11:58:00 [facility] [place] Diastolic Blood Pressure 60 mm[Hg] 11:58:00 [facility] [place] Peripheral Pulse Rate 68 bpm 06/10/2022 19:34:00 Unknown Organization Temperature Temporal Artery 36.7 Geeta 06/10/2022 19:34:00 Unknown Organization Systolic Blood Pressure 113 mm[Hg] 06/10/20 19:34:00 Unknown Organization Diastolic Blood Pressure 73 mm[Hg] 19:34:00 Unknown Organization Respiratory Rate 16 br/min 06/10/2022 19:34:00 Unknown Organization Mean Arterial Pressure, Cuff (Calc) 75 mm[Hg] 03/25/2022 12:43:00 [facility] [place] Systolic Blood Pressure 106 mm[Hg] 03/25/20 12:43:00 [facility] [place] Diastolic Blood Pressure 60 mm[Hg] 12:43:00 [facility] [place] BP Site Left arm 03/25/2022 12:43:00 [facility] [place] Blood Pressure Manual Automatic 03/25/2022 12:43:00 [facility] [place] Temperature Oral 36.9 Egeta 03/25/2022 12:43:00 [facility] [place] Peripheral Pulse Rate 68 bpm 03/25/2022 12:43:00 [facility] [place] Temperature Oral 37.0 Geeta 12/13/2022 19:15:00 [facility] [place] Peripheral Pulse Rate 81 bpm 12/13/2022 19:15:00 [facility] [place] Systolic Blood Pressure 118 mm[Hg] 12/13/19 23 19:15:00 [facility] [place] Diastolic Blood Pressure 66 mm[Hg] 023 19:15:00 [facility] [place] Respiratory Rate 16 br/min 12/13/2022 19:15:00 [facility] [place] SYSTOLIC BLOOD PRESSURE 112 08/07/20 12:40:00 [place] [facility] DIASTOLIC BLOOD PRESSURE 68 025 12:40:00 [place] [facility] PULSE OXIMETRY 100 % 08/07/2025 12:40:00 [place] [facility] WEIGHT 169.4 08/07/2025 12:40:00 [place] [facility] BMI 22 kg/m2 08/07/2025 12:40:00 [place] [facility] TEMPERATURE 97.6 08/07/2025 12:40:00 [place] [facility] PULSE 64 08/07/2025 12:40:00 [place] [facility] RESPIRATION 17 08/07/2025 12:40:00 [place] [facility] SYSTOLIC BLOOD PRESSURE 100 12/25/19 25 13:53:00 [place] [facility] DIASTOLIC BLOOD PRESSURE 48 025 13:53:00 [place] [facility] PULSE OXIMETRY 99 12/25/2024 13:53:00 [place] [facility] WEIGHT 164.5 12/25/2024 13:53:00 [place] [facility] BMI 21 kg/m2 12/25/2024 13:53:00 [place] [facility] PAIN 0 12/25/2024 13:53:00 [place] [facility] PULSE 92 12/25/2024 13:53:00 [place] [facility] RESPIRATION 16 12/25/2024 13:53:00 [place] [facility] WEIGHT 149.3 10/15/2024 13:18:53 [facility] [facility] BMI 19 kg/m2 10/15/2024 13:18:53 [facility] [facility] HEIGHT 74 10/15/2024 13:18:53 [facility] [place] [facility] SYSTOLIC BLOOD PRESSURE 120 10/02/20 16:44:18 [facility] [place] [facility] DIASTOLIC BLOOD PRESSURE 84 024 16:44:18 [facility] [facility] PULSE OXIMETRY 98 10/02/2024 16:44:18 [facility] [place] [facility] WEIGHT 147 10/02/2024 16:44:18 [facility] [facility] TEMPERATURE 98 10/02/2024 16:44:18 [facility] [facility] PULSE 80 10/02/2024 16:44:18 [facility] RESPIRATION 18 10/02/2024 16:44:18 [facility] [place] [facility] Encounters Combined list of: 1) Encounters from Department of Veterans Affairs facilities going backup to the last 18 months, not all VA inpatient encounters are included; 2) Encounters from the Department of Defense facilities going backup to 280 months. Location Location Details Encounter Type Encounter Number Reason For Visit Attending Provider ADM Date DC Date Status Disposition Source [facility] D HC Program) OUTPATIENT [id number] Notes Entered by: Sangita SAMANIEGO 22 Jan 2019 0740 ------- ------- ------- ------- -- JEROD ROQUE 01/22 Released w/o Limitations [facility]( CRD HC Program ) [facility] D Recruit Processin g) OUTPATIENT [id number] ERIC THOMPSON 01/23 Released w/o Limitations [facility] Recruit Process ing) [facility] D Optometry ) OUTPATIENT [id number] Recruit RAMON LAURA 01/25 Released w/o Limitations [facility] Optomet ry) [facility] D MRP Sick Call) OUTPATIENT [id number] Notes Entered by: STAN DINERO 06 May 2019 0653 ------- ------- ------- ------- -- COUGH X2 WEEKS KUMARCAROL PRICESHERLY Bhatt 05/06 Released w/o Limitations [facility](M CRD MRP Sick Call) [facility]) OUTPATIENT [id number] Notes Entered by: BRIANDA FRANCIS 07 Aug 2019 0717 ------- ------- ------- ------- -- AD JUICE 720 - SOI STUDENT PART 2 MARQUIS KONG Miller 08/07 Released w/o Limitations [facility]) [facility](A [facility]) OUTPATIENT [id number] AD JUICE 720 - SOI STUDENT PART 1 TONI MCFARLAND Payal 08/07 Released w/o Limitations [facility]) [facility]( [facility] [place] [facility]) OUTPATIENT [id number] Notes Entered by: VANESSA ROLAND 20 Nov 2019 1225 ------- ------- ------- ------- -- Flako/ SAUD Pinon 11/20 Released w/o Limitations [facility]( [facility] [place] [facility]) [facility]( [facility]) OUTPATIENT [id number] Notes Entered by: JEFF BARKER 09 Jan 2020 0844 ------- ------- ------- ------- -- annual JEFF BARKER 01/09 Released w/o Limitations [facility]( [facility] -) [facility]( [facility] [place] [facility]) OUTPATIENT [id number] Notes Entered by: CRISTINA SOUZA 30 Jan 2020 1318 ------- ------- ------- ------- -- flu//cl b24 SAUD PERALTA 01/29 Released w/o Limitations [facility]( [facility] [place] [facility]) [facility]) TELE CONSULT [id number] Notes Entered by: TRAY BIRCH NMN 10 Mar 2020 0753 ------- ------- ------- ------- -- JHOAN ALMEIDA 03/10 [facility]( [facility] [place] [facility]) [facility]) TELE CONSULT [id number] Notes Entered by: FABY BALLARD NMN 18 May 2020 1102 ------- ------- ------- ------- -- PMT(F/U )//CLB 24 JESÚS KELLEY 05/18 [facility]( [facility] [place] [facility]) [facility]) TELE CONSULT [id number] Notes Entered by: MELISSA KELLEY 26 May 2020 1534 ------- ------- ------- ------- -- Lab results JESÚS KELLEY 05/26 [facility]( [facility] [place] [facility]) [facility] [place] [facility] [place]) OUTPATIENT [id number] CLB24// DON HOOVER 06/30 Sick at Home/Quarter s [facility]( [facility] [place] [facility]) [facility] [place]) OUTPATIENT [id number] Notes Entered by: Miller ARIAS 28 Jul 2020 0832 ------- ------- ------- ------- -- LUCY Winston 07/28 Sick at Home/Quarter s [facility]( [facility]) [facility](24 [facility] BAS) OUTPATIENT [id number] Notes Entered by: Jr WELLS 30 Jul 2020 0820 ------- ------- ------- ------- -- Yvette/LUCY NAGEL 07/30 Released w/o Limitations [facility]( [facility]) [facility]( [facility]) TELE CONSULT [id number] Notes Entered by: MILKA OROZCO 27 Aug 2020 1448 ------- ------- ------- ------- -- FLU CLB 24 JHOAN DIGGS 08/27 [facility]( [facility]) [facility](24 [facility] BAS) OUTPATIENT [id number] Notes Entered by: ABIODUN BOWSER 30 Sep 2020 0925 ------- ------- ------- ------- -- LUCY Sims 09/30 Released w/o Limitations [facility]( [facility]) [facility]) OUTPATIENT [id number] PRE-DHA CLB24 AMALIA AUGUSTINE 09/30 Released w/o Limitations [facility]( [facility]) [facility] ) OUTPATIENT [id number] 020 PRE/ROMY JOSE MANUEL DE LA PAZ 09/30 Released w/o Limitations [facility]( [facility]- [place]) [facility](2n d Mef) OUTPATIENT [id number] Notes Entered by: ADRIAN MURDOCK 25 Nov 2020 1008 ------- ------- ------- ------- -- CLB-24 WILMAR NIEVES 11/25 Sick at Home/Quarter s [facility]( 2nd Mef) [facility](24 th MEU BAS) OUTPATIENT [id number] Notes Entered by: SANDEE CAUSEY 02 Dec 2020 1420 ------- ------- ------- ------- -- COVID vaccine 36 JOSEFINA RITTER Ramses 12/02 Released w/o Limitations [facility]( 24 MEU BAS) [facility](24 th MTU BAS) OUTPATIENT [id number] Notes Entered by: MAIRA SANCHEZ 23 Dec 2020 0743 ------- ------- ------- ------- -- COVID VACCINE 2 JOHN ARBOLEDA 12/23 Released w/o Limitations [facility]( 24 MTU BAS) Theater Facility OUTPATIENT [id number] Theater Provider 04/01 Released w/o Limitations Theater Facilit y [facility]) OUTPATIENT [id number] POST DHA CLB24 DARRICK CALVIN 09/21 Released w/o Limitations [facility]( [facility] s) [facility](2n d Mef) OUTPATIENT [id number] Notes Entered by: BILL GHOSH 22 Oct 2021 1010 ------- ------- ------- ------- -- CLB24 SHELLEY MICHELLE 10/22 Sick at Home/Quarter s [facility]( 2nd Mef) [facility]( [facility]) OUTPATIENT [id number] Notes Entered by: JEFF BARKER 02 Dec 2021 1406 ------- ------- ------- ------- -- annual JEFF BARKER 12/02 Released w/o Limitations [facility]( [facility] -FC) [facility](He aring [facility] C) OUTPATIENT [id number] Notes Entered by: JEFF BARKER 06 Dec 2021 0806 ------- ------- ------- ------- -- f/u 1 and f/u 2 JEFF BARKER 12/06 Released w/o Limitations [facility]( [facility] -) [facility]) OUTPATIENT [id number] PDHRA CLB-24 PATRICA VASQUES 12/14 Released w/o Limitations [facility]( [facility] s) [facility]) OUTPATIENT [id number] MED CERT//C LB24//4 [id number] DERICK WYLIE 12/16 Released w/o Limitations [facility]( [facility] [place] [facility]) [facility] Outpatient Encounter [id number] 10/02 [facility] OFF/OP EST MARCH X REQ PHY/QHP [id number] Diagnos is: ICD-10- CM R10.9 Unspeci fied abdomin al pain Julia MENCHACA 10/02 [facility] Outpatient Encounter [id number] JANUARY SIMON 10/03 [facility] Outpatient Encounter [id number] 10/03 [facility] Outpatient Encounter [id number] AURORAJANUARY STEVENA Ramses 10/03 [facility] Outpatient Encounter [id number] 10/11 [facility] FEE [id number] Diagnos is: ICD-10- CM K21.9 Gastro- esophag eal reflux disease without esophag itis Julia MILAN M 10/[address] [facility] OFFICE O/P NEW LOW 30 MIN [id number] Diagnos is: ICD-10- CM K21.9 Gastro- esophag eal reflux disease without esophag Julia Carver 10/15 [facility] Outpatient Encounter [id number] 10/21 [facility] Outpatient Encounter [id number] 10/22 [facility] Outpatient Encounter [id number] 10/23 [facility] Outpatient Encounter [id number] 10/24 [facility] Outpatient Encounter [id number] 10/28 [facility] Outpatient Encounter [id number] 10/28 [facility] Outpatient Encounter [id number] 10/30 [facility] Outpatient Encounter [id number] 10/30 [facility] Outpatient Encounter [id number] 11/07 [facility] HC PRO PHONE CALL 5-10 MIN [id number] Diagnos is: ICD-10- CM R10.9 Unspeci fied abdomin al pain NICK SAN R 11/08 [facility] Outpatient Encounter [id number] 11/14 [facility] PH1 ASSMT&MGMT NQHP 5-10 [id number] Diagnos is: ICD-10- CM K21.9 Gastro- esophag eal reflux disease without esophag itis NICK SAN R 11/27 [facility] Outpatient Encounter [id number] 11/28 [facility] PH1 ASSMT&MGMT NQHP 5-10 [id number] Diagnos is: ICD-10- CM R10.9 Unspeci fied abdomin al pain NICK SAN R 12/03 [facility] Outpatient Encounter [id number] 12/09 [facility] OFFICE O/P EST LOW 20 MIN [id number] Diagnos is: ICD-10- CM R10.9 Unspeci fied abdomin al pain NELTenisha 12/25 [facility] Outpatient Encounter [id number] 12/26 [facility] Outpatient Encounter [id number] 01/14 [facility] Outpatient Encounter [id number] 01/30 [facility] Outpatient Encounter [id number] 07/29 [facility] Outpatient Encounter [id number] 07/30 [facility] Outpatient Encounter [id number] 07/31 [facility] OFF/OP EST MARCH X REQ PHY/QHP [id number] Diagnos is: ICD-10- CM M79.632 Pain in left forearm JASWINDERNICK ARMIJO Sangita 08/07 [facility] OFFICE O/P EST LOW 20 MIN [id number] Diagnos is: ICD-10- CM Z09 Encntr for f/u exam aft trtmt for cond oth than ammonig ANN Martin 08/07 [facility] Procedures Combined list of: 1) Procedures from Department of Veterans Affairs facilities going back up to thelast 18 months, not all VA non-surgical procedures are included; 2) All procedures from the Department of Defense facilities. Procedure Procedure Type Code Date Perfomer Comments Sourc e No data available for this section Ambulato ry Pharmacy SCREENING TEST OF VISUAL ACUITY, QUANTITATIVE, BILATERAL 2018 [facility] OPHTHALMOLOGICAL SERVICES: MEDICAL EXAMINATION AND EVALUATION WITH INITIATION OF DIAGNOSTIC AND TREATMENT PROGRAM; INTERMEDIATE, NEW PATIENT 2018 [facility] INFLUENZA VIRUS VACCINE, QUADRIVALENT (IIV4), SPLIT VIRUS, 0.5 ML DOSAGE, FOR INTRAMUSCULAR USE 2018 [facility] AUDIOMETRIC TESTING OF GROUPS 2018 [facility] ADMINISTRATION OF PATIENT-FOCUSED HEALTH RISK ASSESSMENT INSTRUMENT (EG, HEALTH HAZARD APPRAISAL) WITH SCORING AND DOCUMENTATION, PER STANDARDIZED INSTRUMENT 2021 [facility] PATIENT EDUCATION, NOT OTHERWISE CLASSIFIED, NON-PHYSICIAN PROVIDER, GROUP, PER SESSION 2021 [facility] PATIENT EDUCATION, NOT OTHERWISE CLASSIFIED, NON-PHYSICIAN PROVIDER, GROUP, PER SESSION 2021 [facility] ADMINISTRATION OF PATIENT-FOCUSED HEALTH RISK ASSESSMENT INSTRUMENT (EG, HEALTH HAZARD APPRAISAL) WITH SCORING AND DOCUMENTATION, PER STANDARDIZED INSTRUMENT 2020 [facility] SEVERE AC RESPIRATORY SYNDROME CORONAVIRUS 2 (SARSCOV-2) (CORONAVIRUS DIS [COVID-19]) VACCINE,MRNALNP,SPIK E PROTEIN,PRESERVATIVE FREE,30 MCG/0.3ML DOSAGE,DILUENT RECONSTITUTED,FOR INTRAMUSCULAR USE 2020 [facility] IMMUNIZATION ADMINISTRATION (INCLUDES PERCUTANEOUS, INTRADERMAL, SUBCUTANEOUS, OR INTRAMUSCULAR INJECTIONS); 1 VACCINE (SINGLE OR COMBINATION VACCINE/TOXOID) 2020 [facility] PSYCHOLOGICAL OR NEUROPSYCHOLOGICAL TEST ADMINISTRATION, WITH SINGLE AUTOMATED, STANDARDIZED INSTRUMENT VIA ELECTRONIC PLATFORM, WITH AUTOMATED RESULT ONLY 2019 [facility] BRIEF COMM TECH-BASE SERV,E.G. VIRT CHK-IN,BY PHYS/OTH QUAL HCP,RPT E&M SERV,PROV TO EST PT,NOT ORIG FRM REL E/M SERV PROV W/IN PREV 7DAY NOR LEAD TO E/M SRV/PX W/IN NEXT 24HR/SOON SHAY; 5-10 MIN DISC 2019 [facility] ANTHRAX VACCINE, FOR SUBCUTANEOUS OR INTRAMUSCULAR USE 2019 [facility] IMMUNIZATION ADMINISTRATION (INCLUDES PERCUTANEOUS, INTRADERMAL, SUBCUTANEOUS, OR INTRAMUSCULAR INJECTIONS); 1 VACCINE (SINGLE OR COMBINATION VACCINE/TOXOID) 2019 [facility] INJECTION, CEFTRIAXONE SODIUM, PER 250 MG 2019 [facility] INFLUENZA VIRUS VACCINE, QUADRIVALENT (IIV4), SPLIT VIRUS, PRESERVATIVE FREE, 0.5 ML DOSAGE, FOR INTRAMUSCULAR USE 2019 [facility] PATIENT EDUCATION, NOT OTHERWISE CLASSIFIED, NON-PHYSICIAN PROVIDER, INDIVIDUAL, PER SESSION 2019 [facility] HEPATITIS A AND HEPATITIS B VACCINE (HEPA-HEPB), ADULT DOSAGE, FOR INTRAMUSCULAR USE 2019 [facility] Ophthalmological New Patient Start Intermediate Level Care Ophthalmological New Patient Start Intermediate Level Care 28940 2018 JAY JAY LIN [facility] Vaccines Adenovirus Type 4 Live, For Oral Use Vaccines Adenovirus Type 4 Live, For Oral Use 54155 2018 [facility] Vaccines Adenovirus Type 7 Live, For Oral Use Vaccines Adenovirus Type 7 Live, For Oral Use 25449 2018 [facility] Influenza Split Virus Vaccine IM With Preservative Quadrivalent 0.50mL Dosage Influenza Split Virus Vaccine IM With Preservative Quadrivalent 0.50mL Dosage 84484 2018 [facility] Pneumococcal Polysaccharide Vaccine 23 Valent Intramuscular Pneumococcal Polysaccharide Vaccine 23 Valent Intramuscular 26991 2018 [facility] Meningococcal Polysaccharide Vaccine Meningococcal Polysaccharide Vaccine 09573 2018 [facility] Tdap Vaccine Seven Years Of Age And Above Tdap Vaccine Seven Years Of Age And Above 72600 2018 [facility] Hepatitis A And Hepatitis B (Intramuscular Use) Adult Dosage Hepatitis A And Hepatitis B (Intramuscular Use) Adult Dosage 00661 2018 [facility] Supervised Injection Intramuscular Antibiotic Physician Supervised Injection Intramuscular Antibiotic 30042 2018 [facility] Immunization Administration By Injection, Each Additional Vaccine Immunization Administration By Injection, Each Additional Vaccine 73757 2018 [facility] Physician Supervised Injection Intramuscular Physician Supervised Injection Intramuscular 90705 2018 [facility] Immunization Administration By Injection, One Vaccine Immunization Administration By Injection, One Vaccine 25837 2018 [facility] Skin Test Anergy Tuberculin Intradermal Skin Test Anergy Tuberculin Intradermal 28941 2018 [facility] Venipuncture Venipuncture 49860 2018 [facility] Collection Of Capillary Blood Specimen Collection Of Capillary Blood Specimen 67486 2018 [facility] Audiometry Group Testing Audiometry Group Testing 61587 2018 FABIO SAMANIEGO [facility] Screening Test Of Visual Acuity, Quantitative, Bilateral Screening Test Of Visual Acuity, Quantitative, Bilateral 34499 TONI MCFARLAND [facility] Vaccines Viral Polio, Inactivated Vaccines Viral Polio, Inactivated 10729 SELENE ROLAND [facility] Hepatitis A And Hepatitis B (Intramuscular Use) Adult Dosage Hepatitis A And Hepatitis B (Intramuscular Use) Adult Dosage 26398 SELENE ROLAND [facility] Threshold Audiogram (Pure Tone) Automated Threshold Audiogram (Pure Tone) Automated 0208T JEFF BARKER [facility] Patient education, not otherwise cla ified, non-physician provider, individual, per se ion Patient education, not otherwise classified, non-physician provider, individual, per session S9445 JEFF BARKER [facility] Immunization Administration By Injection, One Vaccine Immunization Administration By Injection, One Vaccine 06693 WILLITSCHERRY [facility] Influenza Split Virus Vaccine IM Preserv Free 0.5mL Dosage Quadrivalent Influenza Split Virus Vaccine IM Preserv Free 0.5mL Dosage Quadrivalent 43363 WILLITS [facility] Vaccines Viral Yellow Fever Alternative Formulation Vaccines Viral Yellow Fever Alternative Formulation 56633 GUERA CUEVA [facility] Anthrax Vaccine, For Intramuscular Use Anthrax Vaccine, For Intramuscular Use 58935 [place] [facility] Brief communication technology-based service, e.g. virtual check-in, by a physician or other qualified health care profpao gastno who can report evaluation and management services, provided to an established patient, not originating from a related E/M service provided within the previous 7 days nor leading to an E/M service or procedure within the next 24 hours or soonest available appointment; 5-10 minutes of medical discu ion Brief communication technology-based service, e.g. virtual check-in, by a physician or other qualified health manager progressive care who can report evaluation and management services, provided to an established patient, not originating from a related E/M service provided within the previous 7 days nor leading to an E/M service or procedure within the next 24 hours or soonest available appointment; 5-10 minutes of medical discussion G2012 AMALIA AUGUSTINE [facility] Psychometric Neuropsych Testing Battery Admin By Computer Psychometric Neuropsych Testing Battery Admin By Computer 26382 GARRISON SANDY I [facility] Vaccine SARS-CoV-2 mRNA-LNP Moose Protein Preservative Free 30mcg/0.3mL Diluent Reconstituted IM Vaccine SARS-CoV-2 mRNA-LNP Moose Protein Preservative Free 30mcg/0.3[place] [address] MISSY CERVANTES COVID-19 Pfizer; Series #: 1; 0.3 mL; IM; Right Arm; Mfg: [employer]; Lot: [id number]. [facility] Vacc SARS-CoV-2 mRNA-LNP Moose Protein Preservative Free 30mcg/0.3mL Diluent Reconstituted IM Second Dose Vacc SARS-CoV-2 mRNA-LNP Moose Protein Preservative Free 30mcg/0.3mL Diluent Reconstituted IM Second Dose 53336 EMILIANO REES [facility] Vaccine SARS-CoV-2 mRNA-LNP Moose Protein Preservative Free 30mcg/0.3mL Diluent Reconstituted IM Vaccine SARS-CoV-2 mRNA-LNP Moose Protein Preservative Free 30mcg/0.3mL [place] [address] REESMARCO A ALEXDEN IVA COVID-19 Pfizer; Series #: 2; 0.3 mL; IM; Right Arm; Mfg: [employer]; Lot: [id number]; VIS given (Jania: 10/13/2020) . [facility] Mental health a e ment, by non-physician Mental health assessment, by non-physician H0031 DARRICK CALVIN [facility] Preventive Medicine Administration Of Health Risk Questionnaire Patient-Focused Preventive Medicine Administration Of Health Risk Questionnaire Patient-Focused 94857 DARRICK CALVIN [facility] Patient education, not otherwise cla ified, non-physician provider, group, per se ion Patient education, not otherwise classified, non-physician provider, group, per session S9446 JEFF BARKER [facility] Social History Combined list of available smoking, tobacco, and other social history from Department of Defense and Veterans Affairs facilities. Social History Type Response Date Comment Sourc e Tobacco smoking status NHIS VA-TOBACCO NEVER USED CIGARETTES 10/15/2024 [facility] History of tobacco use VA-TOBACCO USE EV BELA DAY OTHER TYPE 10/15/2024 [facility] Sex Representation 07/30/2020 Unknow n Organization Tobacco Never-cigarette user Cigarette use:. Never-other tobacco user (not cigarettes) Other Tobacco use:. Ambulatory Pharmacy Sexual Orientation Ambula tory Pharmacy Gender identity Ambulator y Pharmacy This section is an empty social history section. DoD Assessment and Plan Combined list of future care activities from Department of Defense and Veterans Affairs facilities (e.g., assessment and plan notes, appointments, orders, and referrals). Additional future care activities may be listed in the Plan of Care section. Result Assessment and Plan Date Source Assessment and Plan Extracted from:Title : Office Clinic Note Author: GUILLAUME FINK DO Date: 12/13/22 1. Administrative reason for encounter Final Physical for EAS. Physical exam completed by Customer Advisor Specialist. See HE2927/2808 for complete history and exam findings. No acute concerns at this time. 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 Copy of final physical given to [facility] and a copy provided to front clerk staff for upload onto EMR. All questions answered. Follow up as needed. Extracted from:Title: Office Clinic Note Author: JEREMIAH JORGE Date: 08/18/22 Foot pain Ordered: ibuprofen(ibuprofen 800 mg oral tablet), 1 tab(s), Oral, every 8 hr, # 30 tab(s), 0 total refill(s), Acute, 08/19/2023, 1 tab(s) Oral every 8 hr, Pharmacy: [facility] [Not filled] acetaminophen(Tylenol 325 mg oral tablet), 2 tab(s), Oral, every 4 hr, PRN pain or fever, # 50 tab(s), 0 total refill(s), Acute, 08/19/2023, 2 tab(s) Oral every 4 hr,PRN:as needed for pain or fever, Pharmacy: [facility] [Not filled] XR Foot Weight Bearing 3+ Left Dx: LEFT foot pain DDx: Lisfrank fracture DDx: torn ligament Standby: N/A Labs: N/A Imaging: X-ray Left foot weight bearing Consults: N/A Pt Ed: Diagnosis, medications, labs, imaging, consults, physical exam findings, treatment plan (HEAT application, RICE method, stretching and warm-up injury prevention), disposition, restrictions, and red flags for follow-up visits/ED. All Questions answered. Disposition: Light Duty x 14 days Restrictions: N/A F/U: Pt instructed to f/u if signs/symptoms persist or worsen. [facility]([place] [place] [facility]) Jeremiah PearceKevin Jorge [facility], AD, USN CLB-6, 2D MLG 08/18/22 08:20:54 Extracted from:Title: Office Clinic Note Author: SHELLEY MICHELLEADRIAN Date: 05/09/22 1. URI - Upper respiratory infection 22 yo male with URI sx x 2-3 days. Unremarkable exam. Will treat with meds below and 24 hr SIQ. Advised to return if not resolving. Ordered: benzocaine-menthol topical(Cepacol Sore Throat Cohen 15 mg-3.6 mg mucous membrane lozenge), 1 lozenge(s), Oral, every 2 hr, # 18 EA, 0 total refill(s), Acute, 1 lozenge(s) Oral every 2 hr, Pharmacy: [facility] [Not filled] cetirizine(cetirizine 10 mg oral tablet), 1 tab(s), Oral, Daily, PRN allergy symptoms, # 90 tab(s), 3 total refill(s), Maintenance, 1 tab(s) Oral Daily,PRN:as needed for allergy symptoms, Pharmacy: [facility] [Not filled] ibuprofen(ibuprofen 800 mg oral tablet), 1 tab(s), Oral, every 8 hr, # 30 tab(s), 0 total refill(s), Acute, 06/08/2022, 1 tab(s) Oral every 8 hr, Pharmacy: [facility] [Not filled] pseudoephedrine-guaifenesin(Muc inex D Max Strength 120 mg-1200 mg oral tablet, extended release), 1 tab(s), Oral, every 12 hr, X 7 days, # 14 tab(s), 0 total refill(s), Acute, 1 tab(s) Oral every 12 hr,x7 days, Pharmacy: [facility] [Not filled] acetaminophen(Tylenol 325 mg oral tablet), 3 tab(s), Oral, every 6 hr, PRN pain or fever, # 100 tab(s), 0 total refill(s), Acute, 06/08/2022, 3 tab(s) Oral every 6 hr,PRN:as needed for pain or fever, Pharmacy: [facility] [Not filled] Dx: Upper Respiratory Infection - (Cardio, Respiratory, and HEENT exams unremarkable for at this time. Pt reports no episodes of N/V/D but endorses cough, congestion, febrile that began approximately 2-3 days ago and have yet to resolve despite self-treatment.) DDx: Acute Bronchitis - (considered but ruled out with clear lung sounds) DDx: Pnuemonia - (Unable to confirm without imaging. Will consider. Lung sounds CTA BL) Pt Ed: Diagnosis, medications, labs, imaging, consults, physical exam findings, treatment plan, disposition, restrictions, and red flags for follow-up visits. Disposition: SIQ 24 hrs, meds above Restrictions: F/U: Pt instructed to f/u if signs/symptoms persist or worsen. Extracted from:Title: Office Clinic Note Author: ALLYN ORTIZ, [facility] Date: 03/25/22 Insect bite Increase hygiene to effected area. Observe for signs of infection. Discussed RTC/ED criteria; pt stated understanding of all A/P. 10/03/[address] [place] [address] [facility] Plan of Care List of future care activities from Department of Veterans Affairs facilities. Additional future care activities may be listed in the Assessment and Plan section. Date/Time Care Activity Care Activity Detail Facili ty 10/15/2025 AMBULATORY - MEDICINE AMBULATORY - MEDICI [facility] Functional Status Combined list of recent functional and cognitive assessments recorded at Department of Defense and Veterans Affairs (VA).VA Functional [place] Measurement (FIM) Scale: 1 = Total Assistance (Subject = 0% +), 2 = Maximal Assistance (Subject = 25% +), 3 = Moderate Assistance (Subject = 50% +), 4 = Minimal Assistance (Subject = 75% +), 5 = Supervision, 6 = Modified [place] (Device), 7 = Complete [place] (Timely, Safely). Assessment Date/Time Source Assessment Type Assessment Skill Assessment Score Assessment Details No data available for this section
[2025-10-02 21:20] VITALS: BP 126/70; PULSE 59; RESP 20; TEMP 36.8; O2SAT 99; BMI 21.2
[2025-10-02 21:27] VITALS: BP 126/70; PULSE 59; RESP 20; TEMP 36.8; O2SAT 99
--- NOTE | 2025-10-02 21:27 | ECG_ITS ---
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 Measurements Intervals [place] Rate: 67 P: 71 WI: 134 QRS: 82 QRSD: 106 T: 70 QT: 393 QTc: 416 Interpretive Statements SINUS RHYTHM WITH MARKED SINUS ARRHYTHMIA Compared to ECG 10/02/2024 11:31:14 No significant changes Electronically Signed On 10-04-2025 14:07:13 MEDICAL OFFICE PROFESSIONAL INSTRUCTOR by Amelie Stubbs M.D. [email or web address]
--- NOTE | 2025-10-02 21:44 | ED_ITS ---
HPI - Weakness General: Chief complaint: Weakness Stated complaint: suddenly dizzy tingling SOB Time Seen by Provider: 10/02/25 21:18 History of Present Illness: Patient is a pleasant 25-year-old male without medical history, presented to the ED due to facial tingling, warmth. Initially, patient had some bloating this afternoon after having a deli meat sandwich. He stated it was a burning bloating sensation to his upper abdomen. This seemed to resolve. He had meatloaf this evening, and he noted the same feeling in his abdomen as well as tingling in his face, hot flashes, red tongue. He did not have issues with swallowing, word finding. His feeling and sensation was bilateral. No recent cold, flu, illness. No known tick bite. No weakness. No sick exposure. Associated symptoms: Denies chest pain, chills, easy bruising, fever(s) or headache(s) Related Data Previous Rx's ?Medication ?Instructions ?Recorded triamcinolone acetonide 0.1 % 1 applic topical BID 5 d ays #30 02/16/25 topical cream grams epinephrine 0.3 mg/0.3 mL 0.3 mg (0.3 mL) IM Q10M PRN 10/02/25 injection, auto-injector (EpiPen anaphylaxis #2 ea 2-Ganesh) famotidine 20 mg tablet (Pepcid) 20 mg PO BID 30 days #60 tabs 10/02/25 methylprednisolone 4 mg tablets in See Rx Instructions PO .COMPLEX 10/02/25 a dose pack (Medrol (Ganesh)) #21 ea Allergies Allergy/AdvReac Type Severity Reaction Status Date / Time No Known Allergies Allergy Verified 02/16/25 14:10 Review of Systems Const: Denies: fever(s), chills, change in weight, fatigue or night sweats Eyes: Denies: change in vision ENMT: Denies: throat pain Card: Denies: chest pain, swelling of feet/ankles or dyspnea on exertion Resp: Denies: dyspnea or productive cough GI: Denies: abdominal pain or change in bowel habits Musc: Denies: joint pain Skin/Breast: Reports: pruritus (left pinky finger) and erythema; Denies: rash or skin tenderness Neuro: Reports: numbness in extremities, sensory changes and dizziness; Denies: headache(s), weakness in extremities, lack of coordination, difficulty walking, frequent falls, vertigo, difficulty communicating thoughts or seizure- like activity Psych: Denies: anxiety or depression Endo: Denies: polyuria, polydipsia or tired all the time Samir/Lymph: Denies: easy bruising PFSH ED PFSH: Social History Smoking and tobacco/nicotine status: never used tobacco/nicotine Physical Exam Narrative: EXAM NARRATIVE: Well appearing and no acute distress. Const: COMMON NORMALS: patient oriented x3 and alert GENERAL APPEARANCE: cooperative, comfortable and well kempt HENMT: COMMON NORMALS: normocephalic, atraumatic, hearing grossly normal bilaterally and TM's normal bilaterally HEAD & SCALP: normocephalic and atraumatic TYMPANIC MEMBRANE: TM's normal bilaterally Neck/C-Spine: COMMON NORMALS: full ROM, no lymphadenopathy, supple and no meningeal signs Chest: COMMONS NORMALS: normal inspection of the chest and normal palpation of entire chest wall Resp: COMMON NORMALS: normal respiratory effort and clear to auscultation bilaterally AUSCULTATION: clear to auscultation bilaterally Cardio: COMMON NORMALS: regular rate RATE: regular rate GI: COMMON NORMALS: Normal to inspection, nondistended, normoactive bowel sounds present, Soft to palpation, non-tender and No hepatosplenomegaly present PALPATION: Yes Soft to palpation and Yes No hepatosplenomegaly present : COMMON NORMALS: Yes no CVA tenderness BLADDER/KIDNEY EXAM: Yes no CVA tenderness Back/Pelvis: COMMON NORMALS: no CVA tenderness and thoracic and lumbar spine normal to inspection Extremity: COMMON NORMALS: normal to inspection, full ROM and capillary refill normal Neuro: COMMON NORMALS: patient oriented x3, CN's II-XII intact bilaterally and moves all extremities SENSORIUM/ORIENTATION: Yes alert MENINGEAL SIGNS: Yes no meningeal signs Psych: COMMON NORMALS: cooperative and speech normal APPEARANCE: Yes well kempt ATTITUDE: Yes calm SPEECH: Yes normal speech Skin: COMMON NORMALS: turgor normal GENERAL SKIN EXAM: turgor normal Course Vital Signs: Vital signs: Vital Signs Temperature 98.3 F 10/02/25 21:27 Pulse Rate 74 10/02/25 22:24 Respiratory Rate 16 10/02/25 22:24 Blood Pressure 120/58 10/02/25 22:24 Pulse Oximetry 100 10/02/25 22:24 Oxygen Delivery Me thod Room Air 10/02/25 21:27 MDM - Weakness Medical Decision Making Patient is a 25-year-old gentleman with reaction of bloating, burning to his upper abdomen after eating a meat deli ham sandwich. This occurred this evening after having meat loaf again, his tongue felt like it got hot, red, his face was tingling, and in his abdomen as noted. This is significant for allergic reaction. Most likely alpha-gal associated. He does not have a primary care ph ysician. Will refer to primary care for further testing. In the interim of keeping patient safe, gave him EpiPen, Medrol Dosepak, Pepcid, and advised long- acting antihistamine. Of note, orthostatics were done with me, that are negative. He had a flat blood pressure. He did have slight dizziness upon standing. No additional symptoms were noted other than his dizziness with standing that was mild and resolved. No additional radiological exams were warranted at this time Medical Records I reviewed the patient's medical records. Lab Data I reviewed the patient's lab results. Pending?alpha gal No radiology studies performed this visit Discharge Plan Discharge Patient Disposition: Home Clinical Impression: Allergic reaction Qualifiers: Encounter type: initial encounter Qualified Code(s): T78.40XA - Allergy, unspecified, initial encounter Condition: Stable Prescriptions: New methylprednisolone [Medrol (Ganesh)] 4 mg tablets,dose pack See Rx Instructions .ROUTE .COMPLEX Qty: 21 0RF Rx Instructions: for 6 days epinephrine [EpiPen 2-Ganesh] 0.3 mg/0.3 mL auto-injector 0.3 mg IM Q10M PRN (Reason: anaphylaxis) Qty: 2 0RF Rx Instructions: for 2 doses famotidine [Pepcid] 20 mg tablet 20 mg PO BID 30 Days Qty: 60 0RF No Action triamcinolone acetonide 0.1 % cream 1 applic topical BID 5 Days Qty: 30 0RF Discharge Orders: Discharge ED (Routine); Ordered 10/02/25 Ordered By: Paula Lopez Referrals: Vandana Estevez MD [Primary Care Provider, Family Practice] Discharge Diet: Usual diet Discharge Activity: Resume usual activity Patient Instructions: Allergic Reaction, Alpha-gal Syndrome (DC), Patient Portal & Grace Instructions Activity Restrictions/Additional Instructions: - EpiPen at the pharmacy for emergencies - Pepcid, also called famotidine a powerful antihistamine, is at the pharmacy for twice daily. - Utilize Benadryl, 25 mg every 4 hours as needed for allergic reaction - Take an antihistamine, long-acting, [id number] twice daily. This is an off label use for allergic reaction - Case management referral has been made for primary care. Your alpha gal test is pending. I would not utilize any red meat in the interim awaiting further information. - Dexamethasone, Medrol dosepak that is at the pharmacy, are powerful steroids. This helps with allergic reaction. -Return to ED if you cheat on your red meat, have symptoms that come back, or worsening, or fever greater 100.4 Gy Fahrenheit Thank you for choosing [facility] for your healthcare needs today. You have been screened and evaluated and felt safe for discharge. Health conditions do change or evolve sometimes and as such it is important that you follow up with your Primary Doctor to be re checked, 3-5 days is a general good time frame for follow up. You are always welcome to return to the ED for re assessment if your symptoms are worsening or you have new concerns Print Language: Nauruan Coding Level of Care Code ED Methods Analyst for [facility]
[2025-10-02] MEDS: diphenhydrAMINE 50 mg/mL SDV 1mL IVP (21:58)
[2025-10-02 22:24] VITALS: BP 120/58; PULSE 74; RESP 16; O2SAT 100
--- NOTE | 2025-10-06 07:37 | DCPLANNER ---
messaged [facility] to establish pcp
[2025-10-07 16:19] LABS: Beef (27) IgE 0.10 kU/L; Beef Class 0/1; Lamb (F88) IgE <0.10 kU/L; Lamb Class 0; Pork (F26) IgE <0.10 kU/L
[2025-10-07 18:00] LABS: Galactose-alpha-1,3 IgE <0.10 kU/L (<0.10)
== END 2025-10-02 22:24 | disposition home or self-care (01) ==
PROVIDERS: Emergency Provider Physician Assistant; PCP Family Medicine
DX: T78.40XA Allergy, unspecified, initial encounter (principal); X58.XXXA Exposure to other specified factors, initial encounter
CPT/HCPCS: 36415; 86003; 86008; 93005; 96374; 96375; 99284; J1100; J1200; J3490